=== PATIENT | female | born 1965 | race Asian ===

== ENCOUNTER → 2017-10-19 08:18 | Outpatient (CLI) | payer BC, SELFPAY ==
--- NOTE | 2017-10-19 08:22 | US_ITS ---
STUDY: ABDOMINAL ULTRASOUND - RIGHT UPPER QUADRANT REASON FOR VISIT: Female, 52 years old. Mobile abdominal mass. Bloating. TECHNIQUE: Ultrasound evaluation of the right upper quadrant was performed with real-time and static benz-scale imaging. TECHNICAL QUALITY: Adequate. COMPARISON: None. FINDINGS: Liver: The liver measures 13.0 cm. There is increased echogenicity consistent with fatty infiltration. The bile ducts are within normal limits. There is hepatic color flow. The direction of portal flow is hepatopetal. There is no demonstrated mass lesion. Gallbladder: Normal distended gallbladder. The gallbladder wall measures 2.4 mm. There is a negative sonographic Parsons's sign. There is no pericholecystic fluid. There are no gallstones. Common Bile Duct (C.B.D.): The common bile duct measures 2.4 mm. Pancreas: Normal size of the head, body and tail of the pancreas. There is normal echogenicity of the pancreas. There is no demonstrated pancreatic mass or cyst. Right Kidney: Normal size of the right kidney. The right kidney measures 9.8 cm x 4.7 cm x 4.7 cm. Normal renal cortex. The right cortex measures 1.4 cm. There is no demonstrated renal mass or cyst. There is no right hydronephrosis. US/Abdomen Limited IMPRESSION: Fatty infiltration of the liver. Electronically Signed: Jaylen León MD at 10:06 EST Tel [phone], Service support ,
--- NOTE | 2017-10-19 08:22 | US_ITS ---
STUDY: ULTRASOUND OF THE FEMALE PELVIS - COMPLETE REASON FOR EXAM: Female, 52 years old. History of a mobile mass in the abdomen. LMP: September 22, 2017. TECHNIQUE: Transvaginal TECHNICAL QUALITY: Adequate. COMPARISON: None. FINDINGS: The uterus is anteverted and is in a midline position. The uterus is enlarged and measures 18.8 cm x 11.8 cm x 7.3 cm. There are Nabothian cysts of the cervix. The endometrium measures 7.4 mm in thickness, and is hyperechoic. There is no demonstrated endometrial mass. There is evidence of a large 11.6 cm x 10 cm x 8 cm fundal fibroid. I.U.D. - The patient does not have an I.U.D. The right ovary is non-visualized. The left ovary is non-visualized. There is no fluid in the cul-de-sac. US/Pelvic (Non ) IMPRESSION: Enlarged fibroid uterus. 11.6 cm x 10 cm x 8 cm fibroid in the fundal portion of the uterus. Electronically Signed: Jaylen León MD at 10:05 EST Tel [phone], Service support ,
== END ==
PROVIDERS: Family Provider Family Medicine; PCP Family Medicine; Visit Provider Family Medicine
DX: N85.2 Hypertrophy of uterus (principal)
CPT/HCPCS: 76705; 76856

== ENCOUNTER → 2017-11-09 07:09 | Outpatient (CLI) | payer BC, SELFPAY ==
--- NOTE | 2017-11-08 15:45 | EMB_PTH ---
PATIENT: BO MCKEON LOC: #:[id number] AGE/SX: 60/F ROOM: RE11/09/[address]: Dr. Radha Garner MD : 1965 BED: DIS: SPEC #: [id number] RECD: 11/08/17 17:34 STATUS: ARNOLDO REKary #: [id number] MARLENA: 11/08/17 15:[address]: Radha Keating DEPT: SURGICAL PATHOLOGY RECD BY: Franki Stauffer ENTERED: 11/09/17 08:58 SP TYPE: ENDOM BX/C NALLELY DR: Dr. Sterling Melchor MD Tissues: Endometrium, NOS Procedures: Surgery Specimen Level IV HEADER OPERATION: Endometrial biopsy PRE-OP DIAGNOSIS: Abnormal uterine bleeding TISSUE SUBMITTED: Endometrial biopsy MICROSCOPIC DIAGNOSIS Endometrial biopsy: Scant superficial fragments of weakly proliferative endometrium and mucoid tissue. See comment. PADMINI:tony 11/12/17 COMMENT The specimen predominantly consists of mucoid tissue. Correlation with clinical findings and appropriate follow up are necessary. MICROSCOPIC DESCRIPTION Slides are reviewed. GROSS DESCRIPTION Received in fixative is one container labeled with the patient's name and designated EM biopsy. The specimen consists of multiple fragments of hemorrhagic soft tissue mixed with mucoid tissue that in aggregate measure 3 x 2.5 x 0.4 cm. The entire specimen is submitted in one cassette. / SJ:tony 11/09/17 TC:4 CPT: 19565
[2017-11-09 09:33] LABS: LDH 197 U/L (84-246)
== END ==
PROVIDERS: Family Provider Family Medicine; PCP Family Medicine; Visit Provider Obstetrics & Gynecology
DX: N93.9 Abnormal uterine and vaginal bleeding, unspecified (principal)
CPT/HCPCS: 36415; 83615; 88305

== ENCOUNTER → 2017-11-09 10:59 | Outpatient (CLI) | payer BC, SELFPAY | PROVIDERS: Family Provider Family Medicine; PCP Family Medicine; Visit Provider Obstetrics & Gynecology | DX: N93.9 Abnormal uterine and vaginal bleeding, unspecified (principal) ==

== ENCOUNTER 2017-11-13 13:03 | Emergency (ER) | payer BC, SELFPAY ==
[2017-11-13 13:04] VITALS: BP 176/115; PULSE 65; RESP 16; TEMP 36.2; O2SAT 100; BMI 41.8
--- NOTE | 2017-11-13 13:38 | EKG12_ITS ---
Test Reason : Blood Pressure : / mmHG Vent. Rate : 062 BPM Atrial Rate : 062 BPM P-R Int : 160 ms QRS Dur : 078 ms QT Int : 422 ms P-R-T Axes : 061 070 057 degrees QTc Int : 428 ms Normal sinus rhythm Normal ECG Confirmed by MEE KERN ([id number]), editor & co founder LUIS LAURA ([id number]) on 11/15/2017 2:58:45 PM Referred By: TIFFANIE Confirmed By:MEE KERN
--- NOTE | 2017-11-13 13:59 | NURSING ---
NO OLD EKGS
[2017-11-13 14:14] LABS: Absolute Lymphocyte Count 1.26 X10^3/ul (0.83-4.51); Absolute Neutrophil Count 3.9 X10^3/uL (2.0-7.7); Basophil# 0.01 X10^3/uL; Basophil% 0.2 % (0-1); Eosinophil# 0.02 X10^3/uL; Eosinophils% 0.4 % (0-5); Hematocrit 41.7 % (37-47); Hemoglobin 13.7 g/dl (12.0-15.0); Lymphocyte # 1.26 X10^3/ul (4.0); Lymphocyte % 22.7 % (19-41); Mean Corp Hgb Conc 32.9 g/gl (32-36); Mean Corpuscular Hgb 28.8 pg (27.0-32.0); Mean Corpuscular Volume 87.6 fL (81-99); Mean Platelet Vol. 10.1 fl (6.2-12.0); Monocyte# 0.33 X10^3/uL; Monocyte% 5.9 % (0-10); Neutrophil # 3.93 X10^3/uL (2.7-7.7); Neutrophil % 70.8 % (47-70); Platelet Count 202 K/mm3 (150-450); RBC Distribution Width CV 12.4 % (11.6-14.6); RBC Distribution Width SD 39.4 fl (35.1-43.9); Red Blood Count 4.76 M/mm3 (4.2-5.4); White Blood Count 5.6 K/mm3 (4.4-11.0)
[2017-11-13] MEDS: Ondansetron 4 MG/2 ML Vial IV (14:14)
[2017-11-13] MEDS: LORazepam 2 MG/ML Syringe IV (14:14)
[2017-11-13] MEDS: 0.9% Normal Saline 1,000 ML 999 ML IV (14:14)
[2017-11-13 14:17] LABS: POSITIVE COUNT NO; POSITIVE DIFFERENTIAL NO; POSITIVE MORPHOLOGY NO
[2017-11-13 14:19] LABS: Anion Gap 8 (5-15); BUN 15 mg/dL (7-18); BUN/Creat Ratio 27.6 RATIO (10-20); Calcium,Total 9.2 mg/dL (8.5-10.1); Chloride 104 mmol/L (98-107); Creatinine, Serum 0.54 mg/dL (0.55-1.02); EST Glomerular Filtration Rate 125 mL/min (>60); Est Glom Filt Rate - Afr Amer 151 mL/min (>60); Estimated Creatinine Clearance 87.54 ml/min; Glucose 98 mg/dL (74-106); Potassium 3.4 mmol/L (3.5-5.1); Sodium Level 137 mmol/L (136-145)
[2017-11-13 15:31] VITALS: BP 126/80; PULSE 73; RESP 16; O2SAT 98
--- NOTE | 2017-11-13 15:38 | ED.VISSUMM ---
- ER Visit Summary Date of Service: 11/13/17 Chief Complaint: Dizziness nausea and vomiting History of Present Illness: The patient is a 52 F with dizziness and vomiting. Her symptoms began at about 3 AM this morning. There is a family history of M?ni?re's disease. The patient states she has had prior episodes of vertigo and gets similar symptoms about once a year. She states this is the most severe episode that she has had. She feels like the room is spinning and it is worse particularly when she turns her head to the left. She has had several episodes of nonbloody nonbilious emesis. Her symptoms are worse with movement and attempts of ambulation as well. No chest pain shortness of breath speech difficulty paresthesias or weakness. Physical Examination: Afebrile initial blood pressure 176/115 Moist mucous membranes Heart regular rate and rhythm Lungs are clear Abdomen soft No focal or lateralizing neurological deficits, cranial nerves intact Lateral nystagmus Test Results: EKG shows normal sinus rhythm at a rate of 62. CBC BMP unremarkable. Emergency Department Course and Treatment: Valium is not available. Patient was given IV fluids and IV Ativan. She does report significant improvement on reevaluation. She states she is slightly dizzy but was able to ambulate without difficulty. She has no further vomiting. She was given a prescription for Antivert. She understands return for new or worsening symptoms. She will follow-up as an outpatient. Patient discharged. Treatment Plan: [] Disposition: Discharge Impression: Vertigo This note was generated with [employer] dictation software. It may contain incorrect words, spelling, and punctuation that were not noted in review of the chart prior to signing ED Disposition - Plan for ED Patient: Chief Complaint: Dizziness Referrals: Sterling Melchor MD [Primary Care Provider] -
--- NOTE | 2017-11-13 15:41 | ED.DCSUM_ITS ---
- ER Visit Summary Date of Service: 11/13/17 Chief Complaint: Dizziness nausea and vomiting History of Present Illness: The patient is a 52 F with dizziness and vomiting. Her symptoms began at about 3 AM this morning. There is a family history of M? ni?re's disease. The patient states she has had prior episodes of vertigo and gets similar symptoms about once a year. She states this is the most severe episode that she has had. She feels like the room is spinning and it is worse particularly when she turns her head to the left. She has had several episodes of nonbloody nonbilious emesis. Her symptoms are worse with movement and attempts of ambulation as well. No chest pain shortness of breath speech difficulty paresthesias or weakness. Physical Examination: Afebrile initial blood pressure 176/115 Moist mucous membranes Heart regular rate and rhythm Lungs are clear Abdomen soft No focal or lateralizing neurological deficits, cranial nerves intact Lateral nystagmus Test Results: EKG shows normal sinus rhythm at a rate of 62. CBC BMP unremarkable. Emergency Department Course and Treatment: Valium is not available. Patient was given IV fluids and IV Ativan. She does report significant improvement on reevaluation. She states she is slightly dizzy but was able to ambulate without difficulty. She has no further vomiting. She was given a prescription for Antivert. She understands return for new or worsening symptoms. She will follow-up as an outpatient. Patient discharged. Treatment Plan: [] Disposition: Discharge Impression: Vertigo This note was generated with [employer] dictation software. It may contain incorrect words, spelling, and punctuation that were not noted in review of the chart prior to signing ED Disposition - Plan for ED Patient: Chief Complaint: Dizziness Referrals: Sterling Melchor MD [Primary Care Provider] -
--- NOTE | 2017-11-13 15:41 | ED.DEP ---
ED Disposition - Plan for ED Patient: Chief Complaint: Dizziness Instructions: ED Vertigo Unspecified Prescriptions: Meclizine HCl [Antivert] 25 mg PO 4X/DAY PRN PRN #20 tab PRN Reason: Dizziness Referrals: Sterling Melchor MD [Primary Care Provider] -
[2017-11-13 15:48] VITALS: BP 135/79; PULSE 61; RESP 15; O2SAT 98
== END 2017-11-13 15:48 | disposition home or self-care (01) ==
PROVIDERS: Emergency Provider Emergency Medicine; Family Provider Family Medicine; PCP Family Medicine
DX: R42 Dizziness and giddiness (principal); R11.2 Nausea with vomiting, unspecified; I10 Essential (primary) hypertension; Z79.899 Other long term (current) drug therapy
CPT/HCPCS: 80048; 85025; 93005; 96361; 96374; 96375; 99283; J7030; A4216; J2405

== ENCOUNTER 2018-02-14 05:58 | Inpatient (IN) | payer BC, SELFPAY ==
--- NOTE | 2018-02-11 15:26 | EKG12_ITS ---
Test Reason : PREOP Blood Pressure : / mmHG Vent. Rate : 064 BPM Atrial Rate : 064 BPM P-R Int : 156 ms QRS Dur : 074 ms QT Int : 372 ms P-R-T Axes : 059 062 049 degrees QTc Int : 383 ms Normal sinus rhythm Possible Left atrial enlargement Borderline ECG Confirmed by GUERRERO NGO, PRASANTH ([id number]), book or script editor LUIS LAURA ([id number]) on 02/20/2018 3:21:53 PM Referred By: Radha Lilly Confirmed By:PRASANTH MASTERS MD
[2018-02-11 15:45] LABS: Hematocrit 40.8 % (37-47); Hemoglobin 13.3 g/dl (12.0-15.0); Mean Corp Hgb Conc 32.6 g/gl (32-36); Mean Corpuscular Hgb 28.8 pg (27.0-32.0); Mean Corpuscular Volume 88.3 fL (81-99); Mean Platelet Vol. 10.7 fl (6.2-12.0); Platelet Count 209 K/mm3 (150-450); RBC Distribution Width CV 12.5 % (11.6-14.6); RBC Distribution Width SD 39.6 fl (35.1-43.9); Red Blood Count 4.62 M/mm3 (4.2-5.4); White Blood Count 5.4 K/mm3 (4.4-11.0)
[2018-02-11 16:08] LABS: Scan Indicated on CBC? Y/N NO
[2018-02-11 16:20] LABS: Anion Gap 9 (5-15); BUN 17 mg/dL (7-18); Calcium,Total 8.8 mg/dL (8.5-10.1); Chloride 110 mmol/L (98-107); Creatinine, Serum 0.65 mg/dL (0.55-1.02); EST Glomerular Filtration Rate 101 mL/min (>60); Est Glom Filt Rate - Afr Amer 122 mL/min (>60); Glucose 127 mg/dL (74-106); Potassium 3.7 mmol/L (3.5-5.1); Sodium Level 141 mmol/L (136-145); Thyroid Stim Hormone (TSH) 0.22 uIU/mL (0.358-3.74)
[2018-02-11 16:44] LABS: Prothrombin Time (Protime)PT. 13.4 SECONDS (11.7-14.9)
[2018-02-11 16:45] LABS: Partial Thromboplast Time 30.9 Seconds (24.1-36.2)
[2018-02-13 14:40] LABS: Free T3 2.5 pg/mL (2.18-3.98); T4 Free Direct 1.13 ng/dL (0.76-1.46)
[2018-02-14] VITALS (11 sets, daily range): BP systolic 111–124; BP diastolic 64–82; PULSE 62–81; RESP 16–18; TEMP 36.4–37.2; O2SAT 94–99; BMI 29.1
[2018-02-14 06:26] LABS: Internal QC Validated? YES +Cl - CLEAR BKGD; Pregnancy, Urine Negative Negative
--- NOTE | 2018-02-14 07:30 | HYST_PTH ---
PATIENT: BO MCKEON LOC: MS3 U#:[id number] AGE/SX: 52/F ROOM: MS306 RE02/14/[address]: Dr. Radha Garner MD : 1965 BED: 1 DIS: 02/16/2018 SPEC #: [id number] RECD: 02/14/18 13:29 STATUS: ARNOLDO REKary #: [id number] MARLENA: 02/14/18 07:[address]: Radha Keating DEPT: SURGICAL PATHOLOGY RECD BY: Franki Stauffer ENTERED: 02/14/18 13:29 SP TYPE: HYSTERECT OTHR DR: Dr. Sterling Melchor MD Tissues: Uterus, NOS Procedures: Surgery Specimen Level V HEADER OPERATION: Total abdominal hysterectomy, bilateral salpingectomy PRE-OP DIAGNOSIS: Uterine fibroids TISSUE SUBMITTED: Uterus, cervix, bilateral tubes ? right tube marked with tie MICROSCOPIC DIAGNOSIS Uterus, cervix, bilateral tubes, total abdominal hysterectomy and bilateral salpingectomy: Cervix ? chronic cystic cervicitis and squamous metaplasia. Endometrium ? secretory endometrium. Myometrium ? a leiomyoma (12 cm in greatest dimension). - Focal adenomyosis. Bilateral fallopian tubes - no pathologic diagnosis. SJ:tony 02/15/18 MICROSCOPIC DESCRIPTION Slides are reviewed. GROSS DESCRIPTION Received in fixative is one container labeled with the patient's name and designated uterus, cervix, bilateral tubes, right tube marked with tie. The specimen consists of a hysterectomy specimen consisting of uterus with portion of upper cervix and detached portion of lower cervix and detached bilateral fallopian tubes. The uterus with upper portion of the cervix measures 21 x 11 x 11 cm and detached portion of cervix measures 4 x 3 x 3 cm. The serosal surface is campbell, glistening. The uterus with detached cervix weighs 979 gm. The ectocervical mucosa is focally congested. Sections of the cervix reveal a few cysts filled with mucoid material. The upper portion of the cervix with a piece of uterus measures 3 cm in length. The endometrial cavity is compressed to one side and measures 6 cm in length and 3.5 cm in width. The endometrium is campbell, glistening without any mass lesion and measures up to 0.3 cm in thickness. Sections of the uterine wall reveal a campbell, nodular mass occupying the anterior uterine wall and the fundus measuring 12 cm in greatest dimension. Sections of this mass reveal campbell whorled cut surfaces without areas of hemorrhage, necrosis or cystic degeneration. The uninvolved uterine wall measures 2.5 cm in thickness. The right fallopian tube with the tie measures 6 cm in length and 0.6 cm in diameter. The fimbrial end is identified. The left fallopian tube is similar appearance to right and measures 3.5 cm in length and 0.5 cm in diameter. Sections reveal unremarkable cut surfaces. Motorcycle Mechanic Apprentice sections are submitted in 11 cassettes as follows: 1 ? detached portion of cervix and upper portion of anterior cervix, 2 ? detached portion of cervix and upper portion of posterior cervix, 3 & 4 - anterior uterine wall, 5 & 6 - posterior uterine wall, 7-9 ? nodular mass, 10 ? right fallopian tube, 11 ? left fallopian tube. / PADMINI:tony 02/14/18 TC:1 CPT: 70900
--- NOTE | 2018-02-14 10:28 | PCM.IMDPSTOP ---
Problem List (1) Uterine fibroid Status: Acute (2) Excessive and frequent menstruation with regular cycle Status: Acute Immediate Post-Op Note Date of Procedure: 02/14/18 Primary Surgeon/Physician: Radha Lilly, dewaterer operator: Irlanda Galarza Pre-Operative Diagnosis: Symptomatic uterine fibroids Post-Operative Diagnosis: Symptomatic uterine fibroids Surgery/Procedure Performed:: Total abdominal hysterectomy, bilateral salpingectomy Description of Surgical Findings:: Uterus 990mg Estimated Blood Loss: 400 ml Specimen's removed: uterus, cervix, bilateral tubes Type of Anesthesia:: General - Admit VTE Documentation VTE Present on Admission: No VTE Mechan Device Prophylaxis: SCD's VTE Pharm Prophylaxis ordered?: No
--- NOTE | 2018-02-14 10:31 | OP.PN_ITS ---
Problem List (1) Uterine fibroid Status: Acute (2) Excessive and frequent menstruation with regular cycle Status: Acute Immediate Post-Op Note Date of Procedure: 02/14/18 Primary Surgeon/Physician: Radha Lilyl, recruiting administrator: Irlanda Galarza Pre-Operative Diagnosis: Symptomatic uterine fibroids Post-Operative Diagnosis: Symptomatic uterine fibroids Surgery/Procedure Performed:: Total abdominal hysterectomy, bilateral salpingectomy Description of Surgical Findings:: Uterus 990mg Estimated Blood Loss: 400 ml Specimen's removed: uterus, cervix, bilateral tubes Type of Anesthesia:: General - Admit VTE Documentation VTE Present on Admission: No VTE Mechan Device Prophylaxis: SCD's VTE Pharm Prophylaxis ordered?: No
--- NOTE | 2018-02-14 10:40 | PCM.OPRPT ---
Problem List (1) Uterine fibroid Status: Chronic Qualifiers: Uterine leiomyoma location: intramural and submucous Qualified Code(s): D25.1 - Intramural leiomyoma of uterus; D25.0 - Submucous leiomyoma of uterus (2) Excessive and frequent menstruation with regular cycle Status: Chronic Report of Operation Date of Procedure: 02/14/18 Pre-Operative Diagnosis: Symptomatic uterine fibroids Post-Operative Diagnosis: Symptomatic uterine fibroids Surgery/Procedure Performed:: Total abdominal hysterectomy, bilateral salpingectomy Description of Surgical Findings:: Uterus 990mg turning machine operator helper: Irlanda Galarza Type of Anesthesia:: General Anesthesiologist: Sterling Johnson Specimen's removed: uterus, cervix, bilateral tubes Drains: 150 ml urine Estimated Blood Loss (mL): 400 ml Fluids Replaced: 1500 ml Description of Procedure: Indications: Ms. hansen is a 52-year-old para 2 perimenopausal female with history of menorrhagia and uterine fibroids. Her uterus was approximately 18-20 weeks size on abdominal exam. She had endometrial biopsy demonstrating weakly proliferative endometrium and a normal LDH. Following counseling she opted to proceed with total abdominal hysterectomy and bilateral salpingectomy. Risks, benefits, indications and alternatives of procedure were reviewed. Procedure: Patient was taken to the operating room and sent and was performed. She is placed in a dorsal supine position and induced under general anesthesia and intubated. She was then had perineal prep and Agee catheter was placed. The abdomen was prepped and then draped in sterile fashion. Timeout was performed. A midline infraumbilical incision was made using a scalpel and brought down to incise the subcutaneous tissue and the rectus fascia at the midline using the Bovie. The rectus muscles Shruthi at the midline and . The peritoneum was entered sharply and the peritoneal incision was extended. The uterus was delivered via the incision and the bowel was packed in the Carrabelle retracting system was placed. Attention was turned to the right uterus. The round ligament was isolated incised and the anterior broad ligament was opened to create a bladder flap. The uterine vessels were skeletonized. An avascular segment of the posterior broad ligament was incised and defect created. This uterine ovarian ligament was subsequently clamped and cut. The adnexal pedicle was doubly suture ligated. Attention was turned to the left and pelvis was performed on this side. The uterine vessels and cardinal ligaments were serially Yulissa clamped, cut and suture ligated using 0 Vicryl suture. 0 Vicryl was used for all sutures intra-abdominally during this case unless otherwise mentioned. The uterosacral ligaments were bilaterally clamped, cut and transfixed. The uterus and cervix were excised. This specimen demonstrated only a small portion of the cervical portion was excised. This time it opted to proceed with trachelectomy. The remaining cervix was doubly bluntly dissected from the vagina then excised. The cervix had been removed in its entirety with retrieval of the specimen. The vaginal cuff was reapproximated using serial figure of 8 sutures. Then turned to the left adnexa. The mesosalpinx was clamped and salpingectomy performed. The pedicle was suture-ligated select hemostasis. In similar fashion right salpingectomy was also performed. Attention was then turned to the cuff again some bleeding anterior to the cuff was controlled using the coagulation and suture ligation. Guille was placed at the site with hemostasis attained. The retracting system was removed from the abdomen as were the packing laps. The peritoneum was reapproximated using 0 Vicryl running suture. The rectus fascia was reapproximated using 0 Vicryl mattress sutures. The cutaneous tissue was reapproximated using simple interrupted sutures 0 Vicryl. The skin was closed using 4-0 Monocryl. Mepilex occlusive dressing was placed over the incisional wound. The patient was awakened, extubated and transferred to the recovery room without complication. Sponge, instrument and needle counts were correct ?2. - Complications None - Admit VTE Documentation VTE Present on Admission: No VTE Mechan Device Prophylaxis: SCD's VTE Pharm Prophylaxis ordered?: No
[2018-02-14] MEDS: Dextrose 5%-Lactated Ringers 1,000 ML 125 ML IV ×2 (12:15→19:50)
[2018-02-14] MEDS: Ketorolac 30 MG/ML Syringe IV ×2 (13:07→18:21)
[2018-02-14] MEDS: Levothyroxine 75 MCG Tablet PO (14:32)
[2018-02-14] MEDS: Acetaminophen 500 MG Tablet 1000 MG PO ×2 (14:32→21:59)
[2018-02-14] MEDS: HYDROmorphone 1 MG/ML Syringe IV (14:58)
--- NOTE | 2018-02-14 16:34 | PCM.PN.OB ---
Subjective: Carine is sore, but denies severe pain. She is nauseated with clear liquids. Denies chest pain, shortness of breath or other concerns. Objective: AVSS - Physical Exam General: Alert, Oriented x3, Cooperative, No apparent distress HEENT: Atraumatic, Normocephalic Lungs: Clear to auscultation, Normal air movement Cardiovascular: Regular rate, Regular Rhythm, Normal S1, Normal S2 Abdomen: Soft, Non Tender, Non-Distended, - - Incisional dressing clean, dry and intact Extremities: No edema, No Calf Tenderness Neurological: Neuro grossly intact Psych/Mental Status: Normal Affect, Appropriate, Alert and oriented to time, place, person, mood and affect Vital Signs Temp Pulse Resp BP Pulse Ox 98.4 F 70 16 119/71 96 02/14/18 16:02 02/14/18 16:02 02/14/18 16:02 02/14/18 16:02 02/14/18 16:02 Oxygen Flow Rate (L/min) 2 Oxygen Delivery Method Room Air Weight: 67.7 kg Body Mass Index (BMI) 29.1 Intake and Output for Last 24 Hours 02/12/18 02/13/18 02/14/18 23:59 23:59 23:59 Intake Total 1500 / 1500 Output Total 100 / 100 Balance 1400 / 1400 Laboratory Tests Past 24 Hrs 02/14/18 06:15 Urine Test Negative Medical Necessity - Tobacco Use Smoking Status: Never smoker Assessment/Plan 52yo s/p REYNOLD, bilateral salpingectomy for symptomatic uterine fibroids doing well overall. -Zofran for nausea, will continue on CLD this evening and advance as tolerated. -Abdominal binder -OOB to chair this evening -Routine postop care -Lovenox for DVT ppx
[2018-02-14] MEDS: Ondansetron 4 MG/2 ML Vial IV (19:50)
[2018-02-14] MEDS: Enoxaparin 40 MG/0.4 ML Syringe SC (19:50)
[2018-02-14] MEDS: 0.9% NaCl Peripheral Flush Adult/Peds IV (19:51)
[2018-02-15] MEDS: Ketorolac 30 MG/ML Syringe IV ×3 (00:25→12:15)
[2018-02-15] MEDS: 0.9% NaCl Peripheral Flush Adult/Peds IV ×4 (00:27→12:18)
[2018-02-15 02:49] VITALS: BP 105/53; PULSE 72; RESP 16; TEMP 37.8; O2SAT 96
[2018-02-15] MEDS: Acetaminophen 500 MG Tablet 1000 MG PO ×3 (05:43→23:09)
[2018-02-15] MEDS: Levothyroxine 75 MCG Tablet PO (05:43)
[2018-02-15 06:06] LABS: Hematocrit 31.9 % (37-47); Hemoglobin 10.4 g/dl (12.0-15.0); Mean Corp Hgb Conc 32.6 g/gl (32-36); Mean Corpuscular Hgb 29.2 pg (27.0-32.0); Mean Corpuscular Volume 89.6 fL (81-99); Mean Platelet Vol. 10.5 fl (6.2-12.0); Platelet Count 165 K/mm3 (150-450); RBC Distribution Width CV 12.5 % (11.6-14.6); RBC Distribution Width SD 39.1 fl (35.1-43.9); Red Blood Count 3.56 M/mm3 (4.2-5.4); White Blood Count 10.6 K/mm3 (4.4-11.0)
[2018-02-15 06:11] LABS: Scan Indicated on CBC? Y/N NO
[2018-02-15 07:20] VITALS: O2SAT 94
--- NOTE | 2018-02-15 08:48 | PCM.PN.OB ---
- Physical Exam Vital Signs Temp Pulse Resp BP Pulse Ox 100.1 F H 72 16 105/53 L 94 02/15/18 02:49 02/15/18 02:49 02/15/18 02:49 02/15/18 02:49 02/15/18 07:20 Oxygen Flow Rate (L/min) 2 Oxygen Delivery Method Room Air Weight: 67.7 kg Body Mass Index (BMI) 29.1 Intake and Output for Last 24 Hours 02/13/18 02/14/18 02/15/18 23:59 23:59 23:59 Intake Total 2787 / 2787 898 / 898 Output Total 1100 / 1100 680 / 680 Balance 1687 / 1687 218 / 218 Laboratory Tests Past 24 Hrs 02/15/18 05:45 WBC 10.6 RBC 3.56 L Hgb 10.4 L Hct 31.9 L MCV 89.6 MCH 29.2 MCHC 32.6 RDW 12.5 RDW Differential 39.1 Plt Count 165 MPV 10.5 Medical Necessity - Tobacco Use Smoking Status: Never smoker
--- NOTE | 2018-02-15 08:52 | PCM.PN.OB ---
Subjective: No issues overnight. Nausea resolved. Tolerated clear liquid diet and cream of wheat this morning. Pain is controlled. Passing flatus from below. Was out of bed to chair overnight. Agee removed this morning. Objective: AVSS - Physical Exam General: Alert, Oriented x3, Cooperative, No apparent distress HEENT: Atraumatic, Normocephalic Lungs: Clear to auscultation, Normal air movement Cardiovascular: Regular rate, Regular Rhythm, Normal S1, Normal S2 Abdomen: Soft, Non Tender, Non-Distended, Passing Flatus, - - Incisional dressing c/d/i Extremities: No edema, No Calf Tenderness Neurological: Neuro grossly intact Psych/Mental Status: Normal Affect, Appropriate, Alert and oriented to time, place, person, mood and affect Vital Signs Temp Pulse Resp BP Pulse Ox 100.1 F H 72 16 105/53 L 94 02/15/18 02:49 02/15/18 02:49 02/15/18 02:49 02/15/18 02:49 02/15/18 07:20 Oxygen Flow Rate (L/min) 2 Oxygen Delivery Method Room Air Weight: 67.7 kg Body Mass Index (BMI) 29.1 Intake and Output for Last 24 Hours 02/13/18 02/14/18 02/15/18 23:59 23:59 23:59 Intake Total 2787 / 2787 898 / 898 Output Total 1100 / 1100 680 / 680 Balance 1687 / 1687 218 / 218 Laboratory Tests Past 24 Hrs 02/15/18 05:45 WBC 10.6 RBC 3.56 L Hgb 10.4 L Hct 31.9 L MCV 89.6 MCH 29.2 MCHC 32.6 RDW 12.5 RDW Differential 39.1 Plt Count 165 MPV 10.5 Medical Necessity - Tobacco Use Smoking Status: Never smoker Assessment/Plan 52yo POD#1 s/p REYNOLD, bilateral salpingectomy for symptomatic uterine fibroids doing well overall. -Routine postop care -Voiding trial today -Advance diet as tolerated -Ambulating encouraged, Lovenox for DVT ppx
[2018-02-15 09:00] VITALS: BP 95/55; PULSE 63; RESP 16; TEMP 37.3; O2SAT 98
--- NOTE | 2018-02-15 10:46 | CASEMGMT ---
See RN CM assessment link. DC Plan Home no needs identified @ this time. Pt states her daughter and son are able to assist and will be available on dc. Mariano TORRESN RN ACM
[2018-02-15 14:10] VITALS: BP 109/68; PULSE 64; RESP 16; TEMP 36.9; O2SAT 97
[2018-02-15] MEDS: Ketorolac 10 MG Tablet PO ×2 (17:34→23:10)
[2018-02-15 20:28] VITALS: BP 105/70; PULSE 68; RESP 16; TEMP 36.7; O2SAT 98
[2018-02-15] MEDS: Enoxaparin 40 MG/0.4 ML Syringe SC (23:10)
[2018-02-16 04:13] VITALS: BP 116/74; PULSE 58; RESP 14; TEMP 36.8; O2SAT 97
--- NOTE | 2018-02-16 04:33 | DCINST_ITS ---
Discharge Diet: No Restrictions Discharge Activity: Return to Normal Activity, May Not Drive - while taking narcotic pain medications., May Shower May resume sexual activity in: 6 weeks Lifting Restrictions: 10 lb Call your doctor if your incision/area has: Continuous Slow Oozing, Sudden Increased Bleeding, Increased Pain/ Swelling, Increased Redness, Foul Smelling Discharge Call your doctor if you observe: Fever of 101 or Higher, Inability to urinate, Inability to have a bowel movement, Using more than one pad per hour, Chest pain , Calf discomfort, Uncontrolled pain Suture Line Care: Avoid Pulling/Pushing Remove Dressing in (days):: 2 - Remove on Sunday Cleanse incision/area with: Soap & Water Additional Instructions: You may take up to Tylenol Extra Strength as needed over the counter Allergies/Adverse Reactions: Allergies No Known Allergies Allergy (Verified 02/07/18 11:11) Medications to take at Discharge Levothyroxine [Synthroid] 75 mcg PO DAILY 11/13/17 Meclizine HCl [Antivert] 25 mg PO 4X/DAY PRN PRN #20 tab 11/13/17 Acetaminophen [Tylenol] 1,000 mg PO Q8 tablet 02/16/18 Docusate Sodium [Colace] 100 mg PO BID PRN PRN #30 cap 02/16/18 Oxycodone [Oxyir] 5 mg PO Q4H PRN PRN 3 Days #18 tablet 02/16/18 The following prescriptions were given: Oxycodone [Oxyir] 5 mg PO Q4H PRN PRN 3 Days #18 tablet PRN Reason: Pain Docusate Sodium [Colace] 100 mg PO BID PRN PRN #30 cap PRN Reason: Constipation Primary Care Physician: Sterling Melchor MD [Primary Care Provider] - Please Follow Up With: Radha Lilly MD When: 1-2 weeks
[2018-02-16] MEDS: Ketorolac 10 MG Tablet PO (07:04)
[2018-02-16] MEDS: Acetaminophen 500 MG Tablet 1000 MG PO (07:04)
[2018-02-16] MEDS: Levothyroxine 75 MCG Tablet PO (07:04)
--- NOTE | 2018-02-16 09:40 | PN.OBGYN_ITS ---
Subjective: Pain is controlled with Toradol and Tylenol PO. Tolerates a regular diet. Passing flatus, no bowel movement yet. No issues overnight. Objective: AVSS - Physical Exam General: Alert, Oriented x3, Cooperative, No apparent distress HEENT: Atraumatic, Normocephalic Lungs: Clear to auscultation, Normal air movement Cardiovascular: Regular rate, Regular Rhythm, Normal S1, Normal S2 Abdomen: Bowel Sounds Present, Soft, Non Tender, Non-Distended, - - Incision c/d /i and nontender, dressing replaced Extremities: No edema, No Calf Tenderness Neurological: Neuro grossly intact Psych/Mental Status: Normal Affect, Appropriate, Alert and oriented to time, place, person, mood and affect Vital Signs Temp Pulse Resp BP Pulse Ox 98.2 F 58 L 14 116/74 97 02/16/18 04:13 02/16/18 04:13 02/16/18 04:13 02/16/18 04:13 02/16/18 04:13 Oxygen Flow Rate (L/min) 2 Oxygen Delivery Method Room Air Weight: 67.7 kg Body Mass Index (BMI) 29.1 Intake and Output for Last 24 Hours 02/14/18 02/15/18 02/16/18 23:59 23:59 23:59 Intake Total 2787 / 2787 1498 / 1498 900 / 900 Output Total 1100 / 1100 1180 / 1180 Balance 1687 / 1687 318 / 318 900 / 900 Medical Necessity - Tobacco Use Smoking Status: Never smoker Assessment/Plan 52yo POD#2 s/p REYNOLD, bilateral salpingectomy for symptomatic uterine fibroids doing well overall. -Routine postop care -D/C home today -Reviewed lifting restrictions
--- NOTE | 2018-02-16 09:42 | DCINST_ITS ---
Discharge Diet: No Restrictions Discharge Activity: Return to Normal Activity, May Not Drive - while taking narcotic pain medications., May Shower Return to work on:: 04/01/18 May resume sexual activity in: 6 weeks Lifting Restrictions: 10 lb Call your doctor if your incision/area has: Continuous Slow Oozing, Sudden Increased Bleeding, Increased Pain/ Swelling, Increased Redness, Foul Smelling Discharge Call your doctor if you observe: Fever of 101 or Higher, Inability to urinate, Inability to have a bowel movement, Using more than one pad per hour, Chest pain , Calf discomfort, Uncontrolled pain Suture Line Care: Avoid Pulling/Pushing Remove Dressing in (days):: 2 - Remove on Sunday Cleanse incision/area with: Soap & Water Additional Instructions: You may take up to Tylenol Extra Strength as needed over the counter Allergies/Adverse Reactions: Allergies No Known Allergies Allergy (Verified 02/07/18 11:11) Medications to take at Discharge Levothyroxine [Synthroid] 75 mcg PO DAILY 11/13/17 Meclizine HCl [Antivert] 25 mg PO 4X/DAY PRN PRN #20 tab 11/13/17 Acetaminophen [Tylenol] 1,000 mg PO Q8 tablet 02/16/18 Docusate Sodium [Colace] 100 mg PO BID PRN PRN #30 cap 02/16/18 Ibuprofen 800 mg PO TID PRN #30 tab 02/16/18 Oxycodone [Oxyir] 5 mg PO Q4H PRN PRN 3 Days #18 tablet 02/16/18 The following prescriptions were given: Oxycodone [Oxyir] 5 mg PO Q4H PRN PRN 3 Days #18 tablet PRN Reason: Pain Docusate Sodium [Colace] 100 mg PO BID PRN PRN #30 cap PRN Reason: Constipation Ibuprofen 800 mg PO TID PRN #30 tab PRN Reason: Pain Primary Care Physician: Sterling Melchor MD [Primary Care Provider] - Please Follow Up With: Radha Lilly MD When: 1-2 weeks
--- NOTE | 2018-02-16 09:42 | PCM.DC.SUM ---
Discharge Date and Diagnosis Date of Admission: 02/14/18 Date of Discharge: 02/16/18 - Secondary Discharge Diagnosis Chronic Problems Uterine fibroid (Chronic) Excessive and frequent menstruation with regular cycle (Chronic) Hospital Course and Treatment Operations: - - Total abdominal hysterectomy, bilateral salpingectomy Procedures: None Summary of Care Provided: The patient is a 52 year old female with symptomatic uterine fibroids admitted for scheduled hysterectomy. She underwent a total abdominal hysterectomy with bilateral salpingectomy for an approximately 20 week size uterus. Her post-operative course was uncomplicated. She tolerated a regular diet, passed flatus and had well controlled pain. She was discharged to home on post-operative day #1. Discharge Diet: No Restrictions Discharge Activity: Return to Normal Activity, May Not Drive - while taking narcotic pain medications., May Shower Return to work on:: 04/01/18 May resume sexual activity in: 6 weeks Call your doctor if your incision/area has: Continuous Slow Oozing, Sudden Increased Bleeding, Increased Pain/ Swelling, Increased Redness, Foul Smelling Discharge Call your doctor if you observe: Fever of 101 or Higher, Inability to urinate, Inability to have a bowel movement, Using more than one pad per hour, Chest pain, Calf discomfort, Uncontrolled pain Suture Line Care: Avoid Pulling/Pushing Remove Dressing in (days):: 2 - Remove on Sunday Cleanse incision/area with: Soap & Water Home Medications: Medications to take at Discharge Levothyroxine [Synthroid] 75 mcg PO DAILY 11/13/17 Meclizine HCl [Antivert] 25 mg PO 4X/DAY PRN PRN #20 tab 11/13/17 Acetaminophen [Tylenol] 1,000 mg PO Q8 tablet 02/16/18 Docusate Sodium [Colace] 100 mg PO BID PRN PRN #30 cap 02/16/18 Ibuprofen 800 mg PO TID PRN #30 tab 02/16/18 Oxycodone [Oxyir] 5 mg PO Q4H PRN PRN 3 Days #18 tablet 02/16/18 Following Prescrptions Were Given to Patient: Oxycodone [Oxyir] 5 mg PO Q4H PRN PRN 3 Days #18 tablet PRN Reason: Pain Docusate Sodium [Colace] 100 mg PO BID PRN PRN #30 cap PRN Reason: Constipation Ibuprofen 800 mg PO TID PRN #30 tab PRN Reason: Pain Primary Care Physician: Sterling Melchor MD [Primary Care Provider] - Please Follow Up With: Radha Lilly MD When: 1-2 weeks Additional Instructions: You may take up to Tylenol Extra Strength as needed over the counter Medical Necessity - Tobacco Use Smoking Status: Never smoker Tobacco Use: Non-smoker Meaningful Use Info Meaningful Use Diagnoses (Choose all that apply): None applicable
--- NOTE | 2018-02-16 09:46 | DS.PCM_ITS ---
Discharge Date and Diagnosis Date of Admission: 02/14/18 Date of Discharge: 02/16/18 - Secondary Discharge Diagnosis Chronic Problems Uterine fibroid (Chronic) Excessive and frequent menstruation with regular cycle (Chronic) Hospital Course and Treatment Operations: - - Total abdominal hysterectomy, bilateral salpingectomy Procedures: None Summary of Care Provided: The patient is a 52 year old female with symptomatic uterine fibroids admitted for scheduled hysterectomy. She underwent a total abdominal hysterectomy with bilateral salpingectomy for an approximately 20 week size uterus. Her post- operative course was uncomplicated. She tolerated a regular diet, passed flatus and had well controlled pain. She was discharged to home on post- operative day #1. Discharge Diet: No Restrictions Discharge Activity: Return to Normal Activity, May Not Drive - while taking narcotic pain medications., May Shower Return to work on:: 04/01/18 May resume sexual activity in: 6 weeks Call your doctor if your incision/area has: Continuous Slow Oozing, Sudden Increased Bleeding, Increased Pain/ Swelling, Increased Redness, Foul Smelling Discharge Call your doctor if you observe: Fever of 101 or Higher, Inability to urinate, Inability to have a bowel movement, Using more than one pad per hour, Chest pain , Calf discomfort, Uncontrolled pain Suture Line Care: Avoid Pulling/Pushing Remove Dressing in (days):: 2 - Remove on Sunday Cleanse incision/area with: Soap & Water Home Medications: Medications to take at Discharge Levothyroxine [Synthroid] 75 mcg PO DAILY 11/13/17 Meclizine HCl [Antivert] 25 mg PO 4X/DAY PRN PRN #20 tab 11/13/17 Acetaminophen [Tylenol] 1,000 mg PO Q8 tablet 02/16/18 Docusate Sodium [Colace] 100 mg PO BID PRN PRN #30 cap 02/16/18 Ibuprofen 800 mg PO TID PRN #30 tab 02/16/18 Oxycodone [Oxyir] 5 mg PO Q4H PRN PRN 3 Days #18 tablet 02/16/18 Following Prescrptions Were Given to Patient: Oxycodone [Oxyir] 5 mg PO Q4H PRN PRN 3 Days #18 tablet PRN Reason: Pain Docusate Sodium [Colace] 100 mg PO BID PRN PRN #30 cap PRN Reason: Constipation Ibuprofen 800 mg PO TID PRN #30 tab PRN Reason: Pain Primary Care Physician: Sterling Melchor MD [Primary Care Provider] - Please Follow Up With: Radha Lilly MD When: 1-2 weeks Additional Instructions: You may take up to Tylenol Extra Strength as needed over the counter Medical Necessity - Tobacco Use Smoking Status: Never smoker Tobacco Use: Non-smoker Meaningful Use Info Meaningful Use Diagnoses (Choose all that apply): None applicable
[2018-02-16 10:18] VITALS: BP 117/71; PULSE 59; RESP 16; TEMP 37.1; O2SAT 97
== END 2018-02-16 11:15 | disposition home or self-care (01) | DRG 742 ==
LOC: ACINP 10:54 → MS2 10:57 → MS3 02-15 13:59
PROVIDERS: Admitting Provider Obstetrics & Gynecology; Family Provider Family Medicine; PCP Family Medicine; Visit Provider Obstetrics & Gynecology
PROC: 0UT90ZZ Resection of Uterus, Open Approach (ICD-10-PCS; principal; 2018-02-14 07:10)
DX: D25.1 Intramural leiomyoma of uterus (principal); B18.1 Chronic viral hepatitis B without delta-agent; D25.0 Submucous leiomyoma of uterus; N92.0 Excessive and frequent menstruation with regular cycle; E06.9 Thyroiditis, unspecified; Z79.899 Other long term (current) drug therapy
CPT/HCPCS: 36415; 80048; 81025; 84439; 84443; 84481; 85027; 85610; 85730; 86850; 86900; 88307; 93005; J7120; A4216; J2405

== ENCOUNTER → 2018-03-09 07:56 | Outpatient (CLI) | payer BC, SELFPAY ==
--- NOTE | 2018-03-09 08:11 | BI_ITS ---
MAMMOGRAPHY - BILATERAL SCREENING REASON FOR EXAM: Female, 53 years old. Routine annual screening examination. PERTINENT HISTORY: Non-contributory. TECHNIQUE: Digital bilateral breast saji (3D mammographic acquisition) in the CC and MLO projections. 2-D mediolateral oblique (MLO) and craniocaudad (CC) views of both breasts were obtained. CAD: Full Field Digital Mammography with Computer Added Detection was performed. COMPARISON: Comparison is made with prior study dated February 27, 2017 and February 16, 2016. FINDINGS: Breast Composition: There are scattered areas of fibroglandular density. There are no dominant masses or suspicious calcifications. No other significant abnormalities are identified. There has been no significant change since the prior study. BI/SCREENING MAMM (CAD), BILAT IMPRESSION: Stable bilateral screening mammogram. Yearly follow-up mammogram recommended. (A) ASSESSMENT CATEGORY: BIRADS Category 1: Negative. A letter regarding these results will be sent to the patient by the facility within 30 days. Approximately 10% of breast cancers are not detected by mammography. A normal mammogram should not delay biopsy of a clinically suspicious abnormality. [id number] Electronically Signed: Jaylen León MD at 8:41 EDT Tel [phone], Service support ,
== END ==
PROVIDERS: Family Provider Family Medicine; PCP Family Medicine; Visit Provider Nurse Practitioner Adult Health
DX: Z12.31 Encounter for screening mammogram for malignant neoplasm of breast (principal)
CPT/HCPCS: 77063; 77067

== ENCOUNTER 2018-05-03 16:00 | Outpatient (RCR) | payer BC, SELFPAY ==
--- NOTE | 2018-04-02 11:03 | HP.PTEVAL ---
Patient's Visit Information BO MCKEON is a 53 year old F referred to Physical Therapy by Radha Lilly, with a diagnosis of BACK PAIN. Date of Evaluation: 04/02/18 Physical Therapist: Surekha Barnes - Visit Plan Frequency: 2-3x /Week Duration: 4-6 Weeks Plan: POSTURE CORRECTION/STRENGTHENING, INSTRUCTION IN APPROPRIATE BODY MECHANICS AND ACTIVITY MODIFICATIONS. DLS STARTING WITH A NEUTRAL SPINE PROGRESSING ROM TOLERATED. MICHELE LE ROM, STRETCHING AND STRENGTHENING. HEP INSTRUCTION. 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 HAS BEEN OFF WORK DUE TO HYSTERECTOMY WITH RTW PLANNED 04/11/18. Disability: NO. Present symptoms: MICHELE LOW BACK. PATIENT DENIES MICHELE LE PAIN, NUMBNESS OR TINGLING. Present since: TOTAL HYSTERECTOMY FEB 11 2018 AND THEN THE BACK PAIN STARTED SHORTLY AFTER THAT. Pain Scale: WORST 5/10, LEAST 2/10. Currently: 2/10. Commenced as a result of: PATIENT REPORTS THE DOCTOR TOLD HER SHE MIGHT BE COMPENSATING FOR THE REMOVAL OF THE LARGE FIBROIDS/HYSTERECTOMY. Symptoms at onset: SAME BUT NOT INTENSE. Worse: BENDING, AFTER WALKING, WEEDING, WASHING FACE, DOING DISHES. Better: LYING DOWN FOR SHORT TIMES. Disturbed sleep: NO. Previous history/Previous treatment: UNREMARKABLE. Coughing/sneezing/straining: NEGATIVE. Gait: NORMAL. Difficulty initiating urinatin: NO. Accidents: NO. Unexplained weight loss: NO. Imaging: NO. PMH: UNREMARKABLE EXCEPT DEPRESSION AND THYROID DZ. Recent major surgery: HYSTERECTOMY JANUARY 2018. 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 WAS COMING 6 DAYS A WEEK BEFORE SURGERY USING THE WEIGHT MACHINES, ELIPTICAL AND TREADMILL. - Objective Sitting/Standing Posture: POOR. Lordosis: NORMAL. Lateral shift: NO. Relevant shift: N/A. Active Correction of posture: WORSE. Other Observations: INDEP GAIT INTO PT WITHOUT AD. UNCOMFORTABLE WITH FREQUENT WEIGHT SHIFTING DURING SUBJECTIVE PORTION OF EVAL. INDEP TRANSFER EASILY FROM SIT TO STAND WITHOUT UE ASSIST. Motor deficit: MICHELE LE'S 5/5 WITH MMT'ING. Sensory deficit: NO. ROM deficit: MICHELE LE'S WFL. Reflexes: 2/2 MICHELE ACHILLES AND 1/2 MICHELE QUADS. Dural Signs: NEGATIVE MICHELE LE'S. Lumbar mvmt loss: flex - NIL. ext - MOD. R SG - MOD. L SG - MOD. PATIENT DENIED INCREASED PAIN WITH ONE FLEX REP BUT INCREASED PAIN WITH ONE EXT REP. NO INCREASED PAIN WITH MICHELE SG TESTING. Core strength: POOR. Palpation: TENDER WITH PALPATION THROUGHOUT THE LOWER THORACIC SPINE, LUMBAR SPINE, SACRUM, SI JOINTS, BUTTOCKS AND GREATER TROCH REGIONS. - Goals Goal 1:: DECREASE C/O BACK/HIP PAIN Goal Time Frame: 4-6 Weeks Goal 2:: IMPROVE BENDING, RECOVERY FROM WALKING, LIFTING, ADL, TRAVEL AND EMPLOYMENT/HOMEMAKING FUNCTION. Goal Time Frame: 4-6 Weeks Goal 3:: INSTRUCT IN PROPHYLAXIS Goal Time Frame: 4-6 Weeks - Rehabilitation Potential Rehabilitation Potential: Good - Anticipated Interventions Patient/Client Instruction: Educate patient on: Condition, Plan of Care, Risk Factors, Benefits of Fitness Program For the Purpose of:: To improve self management Therapeutic Exercise to Include: Strength training, Body mechanics, Postural training, Dynamic Lumbar Stabilization For the Purpose of:: To decrease pain, To improve muscle performance and motor function, To increase tolerance to activity/condition/position, To improve performance and independence with ADL's, To improve ability of physical actions for home/community/work/leisure, To improve self management Manual Therapy Techniques to Include: Soft tissue mobilization For the Purpose of:: To decrease pain, To decrease swelling/inflammation Thank you for the opportunity to evaluate your patient. For Medicare and Medicare HMO plans, please review the plan of care and approve it. It will need to be FAXED BACK to us at [phone] for Medicare purposes. Please let me know if there are questions or concerns regarding this plan of care. Physician Signature: Date:
--- NOTE | 2018-05-03 16:41 | HP.PTDCSUM_ITS ---
HP - PT D/C Summary It has been my pleasure to treat BO MCKEON under orders from Radha Garner,, for the diagnosis of BACK PAIN for a total of 10 visit(s). Discharge Date: 05/03/18 Please see the following information for a summary of their discharge status. - Subjective Subjective: PATIENT REPORTS SHE IS BETTER AND THERAPY HAS BEEN REALLY HELPFUL. REPORTS SHE CAN EMPTY THE HUMIDIFIER NOW WITHOUT ANY PAIN OR PROBLEM. SHE REPORTS THAT THE ONLY THING THAT MAKES IT NOT 100% IS SOME INTERMITTENT TIGHTNESS IN HER LOW BACK BUT STATES IT DOESN'T BOTHER ME AND I THINK THE EX'S WILL FIX IT. REPORTS SHE CAME IN AND EXERCISED ON THE MACHINES ON HER OWN ALREADY WITHOUT DIFFICULTY. NOT SURE IF NEEDLE HELPED OR NOT. - Pain LOW BACK Pain Intensity (Out of 10): 0 - Overall Improvement % Improvement: 90 - Objective Objective/Function: GOOD UNDERSTANDING OF ALL HOME INSTRUCTIONS DEMONSTRATED OR COMMUNICATED. ALL GOALS MET. - Goals Goal 1:: DECREASE C/O BACK/HIP PAIN Goal Progress: Goal Met Goal 2:: IMPROVE BENDING, RECOVERY FROM WALKING, LIFTING, ADL, TRAVEL AND EMPLOYMENT/HOMEMAKING FUNCTION. Goal Progress: Goal Met Goal 3:: INSTRUCT IN PROPHYLAXIS Goal Progress: Goal Met - Plan Plan: D/C TO INDEP EX. PATIENT IS AGREEABLE. - D/C Information If there are questions or concerns regarding this patient's physical therapy, please feel free to call me at [phone]. Thank you for the referral of this patient. Sincerely, Surekha Barnes
== END 2018-05-03 19:00 | disposition home or self-care (01) ==
LOC: PT 16:00
PROVIDERS: Family Provider Family Medicine; PCP Family Medicine; Visit Provider Obstetrics & Gynecology
DX: M54.5 Low back pain (principal)
CPT/HCPCS: 97014; 97110; 97140; 97162; 97530; G0283

== ENCOUNTER 2018-06-16 02:11 | Emergency (ER) | payer BC, SELFPAY ==
[2018-06-16 02:14] VITALS: BP 139/85; PULSE 59; RESP 16; TEMP 36.4; O2SAT 100; BMI 27.7
--- NOTE | 2018-06-16 02:39 | CT_ITS ---
STUDY: CT BRAIN WITHOUT CONTRAST REASON FOR EXAM: Female, 53 years old. Dizziness and nausea RADIATION DOSAGE (If Supplied By Facility): CTDIvol = ( 44.99 ) mGy, DLP = ( 762.36 ) mGycm TECHNIQUE: Transaxial CT imaging of the brain was performed without administration of intravenous contrast material. Individualized dose optimization techniques were used for this CT. COMPARISON: None. FINDINGS: Normal soft tissue structures. Normal calvarium. Normal size ventricles and extra-axial spaces for the patient's age. Normal white matter tracts of the cerebral hemispheres. Normal basal ganglia and thalami. Normal brainstem. Normal cerebellum. There is no intracranial hemorrhage. There are no findings of an acute ischemic infarction. Normal visualized paranasal sinuses. CT/Brain/Head without Contrast IMPRESSION: No CT evidence of infarct or hemorrhage. Comment: If there is clinical concern for hyperacute ischemia that is not yet apparent by CT, MRI should be considered if possible. Electronically Signed: Vega Mckeon MD at 3:42 EDT Tel , Service support ,
--- NOTE | 2018-06-16 02:39 | EKG12_ITS ---
Test Reason : DIZZINESS Blood Pressure : / mmHG Vent. Rate : 054 BPM Atrial Rate : 054 BPM P-R Int : 174 ms QRS Dur : 084 ms QT Int : 440 ms P-R-T Axes : 052 063 054 degrees QTc Int : 417 ms Sinus bradycardia Otherwise normal ECG Confirmed by [employer], NIKKI ([id number]), newspaper or periodical editor LUIS LAURA ([id number]) on 06/19/2018 8:57:57 AM Referred By: NAHUN Confirmed By:NIKKI JARAMILLO MD
--- NOTE | 2018-06-16 02:42 | ED.VISSUMM ---
- ER Visit Summary Date of Service: 06/16/18 Chief Complaint: Dizziness History of Present Illness: The patient is a 53 F who presents for dizziness. Onset was approximately 4 hours prior to presentation and occurred while patient was sleeping. She feels like everything is spinning, and it is worsened by movement. It is worse when she is on her left side or laying flat. Patient had difficulty walking secondary to symptoms. She had a prior similar episode in October, at which time she took one weeks worth of a medication, although she does not know the name of the medicine, and symptoms resolved. She has associated nausea and vomiting. She has a left-sided headache. It feels like pressure in her head. Denies unilateral numbness or weakness. No difficulty swallowing or speaking. No vision changes, although it is more comfortable to keep her eyes closed. Patient has a history of hypothyroidism status post thyroid ablation. She denies any further history. Physical Examination: Vital signs: afebrile, hemodynamically stable, no hypoxia on room air General: well nourished, well developed, in no distress, laying in bed with eyes closed, appears mildly uncomfortable Skin: warm, dry, no rash, no pallor HEENT: normocephalic and atraumatic, nontender scalp; PERRL, EOMI, subtle horizontal nystagmus, symptoms instigated with gaze to the left, moist mucous membranes Cardiovascular: regular rate and rhythm without murmurs, no peripheral edema, 2+ pulses all distal extremities Respiratory: No increased work of breathing, lungs are clear to auscultation bilaterally, no rales, rhonchi or wheezing Abdominal: Abdomen is soft, nontender with normoactive bowel sounds, no guarding or rebound, no masses MSK: Moves all extremities, no deformities, normal strength Neuro: Awake and alert, oriented ?4. No facial droop, sensation and motor function intact and symmetric, normal finger to nose and heel to brown testing Test Results: Abnormal Lab Results 06/16/18 06/16/18 06/16/18 02:28 02:28 02:28 WBC 5.3 RBC 4.78 Hgb 13.7 Hct 41.4 MCV 86.6 MCH 28.7 MCHC 33.1 RDW 12.3 RDW Differential 38.8 Plt Count 245 MPV 10.2 Immature Gran % (Auto) 0.000 Neut % (Auto) 31.1 L Lymph % (Auto) 59.7 H [place] % (Auto) 8.0 Eos % (Auto) 0.8 Baso % (Auto) 0.4 Absolute Neuts (auto) 1.7 L Absolute Lymphs (auto) 3.15 Total Counted Not Reportable PT 13.1 INR 1.0 APTT 26.8 Sodium 143 Potassium 3.5 Chloride 109 H Carbon Dioxide 22.0 Anion Gap 12 BUN 20 H Creatinine 0.73 Estim Creat Clear Calc 70.49 Est GFR (MDRD) Af Amer 107 Est GFR (MDRD) Non-Af 88 BUN/Creatinine Ratio 27.3 H Glucose 115 H Calcium 8.8 Total Bilirubin 0.40 AST 15 ALT 26 Alkaline Phosphatase 74 Troponin I < 0.015 Total Protein 7.8 Albumin 3.8 Globulin 4.0 Albumin/Globulin Ratio 1.0 Urine Color Urine Clarity Urine pH Ur Specific [place] Urine Protein Urine Glucose (UA) Urine Ketones Urine Occult Blood Urine Nitrite Urine Bilirubin Urine Urobilinogen Ur Leukocyte Esterase Urine RBC Urine WBC Ur Squamous Epith Cells Urine Bacteria Urine Mucus Ethyl Alcohol POC Glucose 06/16/18 06/16/18 06/16/18 02:28 03:04 03:40 WBC RBC Hgb Hct MCV MCH MCHC RDW RDW Differential Plt Count MPV Immature Gran % (Auto) Neut % (Auto) Lymph % (Auto) [place] % (Auto) Eos % (Auto) Baso % (Auto) Absolute Neuts (auto) Absolute Lymphs (auto) Total Counted PT INR APTT Sodium Potassium Chloride Carbon Dioxide Anion Gap BUN Creatinine Estim Creat Clear Calc Est GFR (MDRD) Af Amer Est GFR (MDRD) Non-Af BUN/Creatinine Ratio Glucose Calcium Total Bilirubin AST ALT Alkaline Phosphatase Troponin I Total Protein Albumin Globulin Albumin/Globulin Ratio Urine Color Yellow Urine Clarity Sl. Cloudy Urine pH 6.5 Ur Specific [place] 1.015 Urine Protein 15 H Urine Glucose (UA) Normal Urine Ketones Negative Urine Occult Blood Negative Urine Nitrite Negative Urine Bilirubin Negative Urine Urobilinogen Normal Ur Leukocyte Esterase Negative Urine RBC 0 SEEN Urine WBC 0 SEEN Ur Squamous Epith Cells 0-5 SEEN Urine Bacteria RARE Urine Mucus 0 SEEN Ethyl Alcohol < 3.0 POC Glucose 107 Clinical Impression(s) from Imaging Studies Brain CT 06/16/18 02:39 IMPRESSION: No CT evidence of infarct or hemorrhage. Comment: If there is clinical concern for hyperacute ischemia that is not yet apparent by CT, MRI should be considered if possible. Electronically Signed: Vega Mckeon MD at 3:42 EDT Tel , Service support , Chest X-Ray 06/16/18 03:20 IMPRESSION: Normal x-ray examination of the chest. Electronically Signed: Vega Mckeon MD at 3:58 EDT Tel , Service support , Medications Given Discontinued Medications Sodium Chloride () 1,000 mls @ 1,000 mls/hr IV .Q1H ONE Stop: 06/16/18 03:38 Last Admin: 06/16/18 02:58 Dose: 1,000 mls/hr Meclizine HCl (Antivert) 25 mg PO X1 ONE Stop: 06/16/18 05:07 Last Admin: 06/16/18 05:23 Dose: 25 mg Promethazine HCl (Phenergan) 12.5 mg IV X1 ONE Stop: 06/16/18 02:40 Last Admin: 06/16/18 02:58 Dose: 12.5 mg Emergency Department Course and Treatment: Patient was given IV fluids and Phenergan for symptomatic relief. Because she has had a prior episode of vertigo and states this feels similar, including worse symptoms with laying flat or turning to the left, this is most likely a peripheral vertigo. However her testing does not show reproducibility or quick fatigue of symptoms with repositioning, including laying her flat with her head turned to the left. Thus workup was performed to evaluate for alternative causes. Patient had no significant lab abnormalities, including a negative alcohol, negative troponin, no leukocytosis or significant anemia. Head CT showed no acute intracranial process, although this is not sensitive for cerebellar ischemia. Patient received IV fluids and Phenergan for her symptoms. On reevaluation her nausea had resolved but she continued to feel dizzy. She was given a dose of meclizine, and had great improvement in her dizziness. We discussed admission for further workup of her vertigo to rule out a central cause, although again this does seem most likely peripheral, as this is her second episode of the same symptoms and there is a component of additional triggers. Patient did not wish admission at this time and preferred to go home. She has had significant improvement in her symptoms and was able to ambulate without any difficulty, demonstrating no ataxic gait. Patient was given a prescription for meclizine and for Valium. She was discharged home with return precautions. Treatment Plan: [] Disposition: [] Impression: Peripheral vertigo This note was generated with Re[employer]ora dictation software. It may contain incorrect words, spelling, and punctuation that were not noted in review of the chart prior to signing ED Disposition - Plan for ED Patient: Disposition: Home or Assisted Living Chief Complaint: Dizziness Instructions: ED Vertigo Unspecified Prescriptions: Diazepam [Valium] 2 mg PO TID PRN PRN 5 Days #10 tab PRN Reason: Vertigo Meclizine HCl 25 mg PO TID PRN #30 tab PRN Reason: Vertigo Referrals: Sterling Melchor MD [Primary Care Provider] - 1-2 Days if not improving Additional Instructions: Please continue to use the meclizine for your dizziness. You may try the Valium if meclizine is not helping enough to control your symptoms. Be very careful when taking the Valium, as it may make you feel loopy or sleepy. If your symptoms worsen or you develop any new concerning symptoms, please return immediately to the emergency department for another evaluation. Please follow-up with your family doctor for another evaluation 1-2 days.
--- NOTE | 2018-06-16 02:45 | ED.DCSUM_ITS ---
- ER Visit Summary Date of Service: 06/16/18 Chief Complaint: Dizziness History of Present Illness: The patient is a 53 F who presents for dizziness. Onset was approximately 4 hours prior to presentation and occurred while patient was sleeping. She feels like everything is spinning, and it is worsened by movement. It is worse when she is on her left side or laying flat. Patient had difficulty walking secondary to symptoms. She had a prior similar episode in October, at which time she took one weeks worth of a medication, although she does not know the name of the medicine, and symptoms resolved. She has associated nausea and vomiting. She has a left-sided headache. It feels like pressure in her head. Denies unilateral numbness or weakness. No difficulty swallowing or speaking. No vision changes, although it is more comfortable to keep her eyes closed. Patient has a history of hypothyroidism status post thyroid ablation. She denies any further history. Physical Examination: Vital signs: afebrile, hemodynamically stable, no hypoxia on room air General: well nourished, well developed, in no distress, laying in bed with eyes closed, appears mildly uncomfortable Skin: warm, dry, no rash, no pallor HEENT: normocephalic and atraumatic, nontender scalp; PERRL, EOMI, subtle horizontal nystagmus, symptoms instigated with gaze to the left, moist mucous membranes Cardiovascular: regular rate and rhythm without murmurs, no peripheral edema, 2 + pulses all distal extremities Respiratory: No increased work of breathing, lungs are clear to auscultation bilaterally, no rales, rhonchi or wheezing Abdominal: Abdomen is soft, nontender with normoactive bowel sounds, no guarding or rebound, no masses MSK: Moves all extremities, no deformities, normal strength Neuro: Awake and alert, oriented ?4. No facial droop, sensation and motor function intact and symmetric, normal finger to nose and heel to brown testing Test Results: Abnormal Lab Results 06/16/18 06/16/18 06/16/18 02:28 02:28 02:28 WBC 5.3 RBC 4.78 Hgb 13.7 Hct 41.4 MCV 86.6 MCH 28.7 MCHC 33.1 RDW 12.3 RDW Differential 38.8 Plt Count 245 MPV 10.2 Immature Gran % (Auto) 0.000 Neut % (Auto) 31.1 L Lymph % (Auto) 59.7 H [place] % (Auto) 8.0 Eos % (Auto) 0.8 Baso % (Auto) 0.4 Absolute Neuts (auto) 1.7 L Absolute Lymphs (auto) 3.15 Total Counted Not Reportable PT 13.1 INR 1.0 APTT 26.8 Sodium 143 Potassium 3.5 Chloride 109 H Carbon Dioxide 22.0 Anion Gap 12 BUN 20 H Creatinine 0.73 Estim Creat Clear Calc 70.49 Est GFR (MDRD) Af Amer 107 Est GFR (MDRD) Non-Af 88 BUN/Creatinine Ratio 27.3 H Glucose 115 H Calcium 8.8 Total Bilirubin 0.40 AST 15 ALT 26 Alkaline Phosphatase 74 Troponin I < 0.015 Total Protein 7.8 Albumin 3.8 Globulin 4.0 Albumin/Globulin Ratio 1.0 Urine Color Urine Clarity Urine pH Ur Specific [place] Urine Protein Urine Glucose (UA) Urine Ketones Urine Occult Blood Urine Nitrite Urine Bilirubin Urine Urobilinogen Ur Leukocyte Esterase Urine RBC Urine WBC Ur Squamous Epith Cells Urine Bacteria Urine Mucus Ethyl Alcohol POC Glucose 06/16/18 06/16/18 06/16/18 02:28 03:04 03:40 WBC RBC Hgb Hct MCV MCH MCHC RDW RDW Differential Plt Count MPV Immature Gran % (Auto) Neut % (Auto) Lymph % (Auto) [place] % (Auto) Eos % (Auto) Baso % (Auto) Absolute Neuts (auto) Absolute Lymphs (auto) Total Counted PT INR APTT Sodium Potassium Chloride Carbon Dioxide Anion Gap BUN Creatinine Estim Creat Clear Calc Est GFR (MDRD) Af Amer Est GFR (MDRD) Non-Af BUN/Creatinine Ratio Glucose Calcium Total Bilirubin AST ALT Alkaline Phosphatase Troponin I Total Protein Albumin Globulin Albumin/Globulin Ratio Urine Color Yellow Urine Clarity Sl. Cloudy Urine pH 6.5 Ur Specific [place] 1.015 Urine Protein 15 H Urine Glucose (UA) Normal Urine Ketones Negative Urine Occult Blood Negative Urine Nitrite Negative Urine Bilirubin Negative Urine Urobilinogen Normal Ur Leukocyte Esterase Negative Urine RBC 0 SEEN Urine WBC 0 SEEN Ur Squamous Epith Cells 0-5 SEEN Urine Bacteria RARE Urine Mucus 0 SEEN Ethyl Alcohol < 3.0 POC Glucose 107 Clinical Impression(s) from Imaging Studies Brain CT 06/16/18 02:39 IMPRESSION: No CT evidence of infarct or hemorrhage. Comment: If there is clinical concern for hyperacute ischemia that is not yet apparent by CT, MRI should be considered if possible. Electronically Signed: Vega Mckeon MD at 3:42 EDT Tel , Service support , Chest X-Ray 06/16/18 03:20 IMPRESSION: Normal x-ray examination of the chest. Electronically Signed: Vega Mckeon MD at 3:58 EDT Tel , Service support , Medications Given Discontinued Medications Sodium Chloride () 1,000 mls @ 1,000 mls/hr IV .Q1H ONE Stop: 06/16/18 03:38 Last Admin: 06/16/18 02:58 Dose: 1,000 mls/hr Meclizine HCl (Antivert) 25 mg PO X1 ONE Stop: 06/16/18 05:07 Last Admin: 06/16/18 05:23 Dose: 25 mg Promethazine HCl (Phenergan) 12.5 mg IV X1 ONE Stop: 06/16/18 02:40 Last Admin: 06/16/18 02:58 Dose: 12.5 mg Emergency Department Course and Treatment: Patient was given IV fluids and Phenergan for symptomatic relief. Because she has had a prior episode of vertigo and states this feels similar, including worse symptoms with laying flat or turning to the left, this is most likely a peripheral vertigo. However her testing does not show reproducibility or quick fatigue of symptoms with repositioning, including laying her flat with her head turned to the left. Thus workup was performed to evaluate for alternative causes. Patient had no significant lab abnormalities, including a negative alcohol, negative troponin, no leukocytosis or significant anemia. Head CT showed no acute intracranial process, although this is not sensitive for cerebellar ischemia. Patient received IV fluids and Phenergan for her symptoms. On reevaluation her nausea had resolved but she continued to feel dizzy. She was given a dose of meclizine , and had great improvement in her dizziness. We discussed admission for further workup of her vertigo to rule out a central cause, although again this does seem most likely peripheral, as this is her second episode of the same symptoms and there is a component of additional triggers. Patient did not wish admission at this time and preferred to go home. She has had significant improvement in her symptoms and was able to ambulate without any difficulty, demonstrating no ataxic gait. Patient was given a prescription for meclizine and for Valium. She was discharged home with return precautions. Treatment Plan: [] Disposition: [] Impression: Peripheral vertigo This note was generated with [employer] dictation software. It may contain incorrect words, spelling, and punctuation that were not noted in review of the chart prior to signing ED Disposition - Plan for ED Patient: Disposition: Home or Assisted Living Chief Complaint: Dizziness Instructions: ED Vertigo Unspecified Prescriptions: Diazepam [Valium] 2 mg PO TID PRN PRN 5 Days #10 tab PRN Reason: Vertigo Meclizine HCl 25 mg PO TID PRN #30 tab PRN Reason: Vertigo Referrals: Sterling Melchor MD [Primary Care Provider] - 1-2 Days if not improving Additional Instructions: Please continue to use the meclizine for your dizziness. You may try the Valium if meclizine is not helping enough to control your symptoms. Be very careful when taking the Valium, as it may make you feel loopy or sleepy. If your symptoms worsen or you develop any new concerning symptoms, please return immediately to the emergency department for another evaluation. Please follow-up with your family doctor for another evaluation 1-2 days.
[2018-06-16 02:58] LABS: Absolute Lymphocyte Count 3.15 X10^3/ul (0.83-4.51); Absolute Neutrophil Count 1.7 X10^3/uL (2.0-7.7); Basophil# 0.02 X10^3/uL; Basophil% 0.4 % (0-1); Eosinophil# 0.04 X10^3/uL; Eosinophils% 0.8 % (0-5); Hematocrit 41.4 % (37-47); Hemoglobin 13.7 g/dl (12.0-15.0); Lymphocyte # 3.15 X10^3/ul (4.0); Lymphocyte % 59.7 % (19-41); Mean Corp Hgb Conc 33.1 g/gl (32-36); Mean Corpuscular Hgb 28.7 pg (27.0-32.0); Mean Corpuscular Volume 86.6 fL (81-99); Mean Platelet Vol. 10.2 fl (6.2-12.0); Monocyte# 0.42 X10^3/uL; Neutrophil # 1.65 X10^3/uL (2.7-7.7); Neutrophil % 31.1 % (47-70); Platelet Count 245 K/mm3 (150-450); RBC Distribution Width CV 12.3 % (11.6-14.6); RBC Distribution Width SD 38.8 fl (35.1-43.9); Red Blood Count 4.78 M/mm3 (4.2-5.4); White Blood Count 5.3 K/mm3 (4.4-11.0)
[2018-06-16] MEDS: proMETHazine 25 MG/ML Syringe 12.5 MG IV (02:58)
[2018-06-16] MEDS: 0.9% Normal Saline 1,000 ML 1000 ML IV (02:58)
[2018-06-16 03:00] LABS: POSITIVE COUNT NO; POSITIVE DIFFERENTIAL NO; POSITIVE MORPHOLOGY NO
[2018-06-16 03:01] LABS: Prothrombin Time (Protime)PT. 13.1 SECONDS (11.7-14.9)
[2018-06-16 03:02] LABS: Partial Thromboplast Time 26.8 Seconds (24.1-36.2)
[2018-06-16 03:04] LABS: Alcohol, Blood (Medical)-Serum < 3.0 mg/dL
[2018-06-16 03:11] LABS: AST(SGOT) 15 U/L (15-37); Alanine Aminotransfer ALT/SGPT 26 U/L (13-56); Albumin, Serum 3.8 g/dL (3.2-5.0); Alkaline Phosphatase 74 U/L (45-117); Anion Gap 12 (5-15); BUN 20 mg/dL (7-18); BUN/Creat Ratio 27.3 RATIO (10-20); Calcium,Total 8.8 mg/dL (8.5-10.1); Chloride 109 mmol/L (98-107); Creatinine, Serum 0.73 mg/dL (0.55-1.02); EST Glomerular Filtration Rate 88 mL/min (>60); Est Glom Filt Rate - Afr Amer 107 mL/min (>60); Estimated Creatinine Clearance 70.49 ml/min; Glucose 115 mg/dL (74-106); Potassium 3.5 mmol/L (3.5-5.1); Protein, Total 7.8 g/dL (6.4-8.2); Sodium Level 143 mmol/L (136-145)
[2018-06-16 03:11] LABS: Bedside Glucose 107 mg/dL (70-110)
--- NOTE | 2018-06-16 03:20 | RAD_ITS ---
STUDY: X-RAY CHEST REASON FOR EXAM: Female, 53 years old. Dizziness TECHNIQUE: Single frontal view of the chest. COMPARISON: None. FINDINGS: The lungs are clear and expanded. There is no demonstrated pleural abnormality. Normal size heart. Normal mediastinum and lópez. Normal visualized pulmonary arteries. Normal visualized aortic arch and descending thoracic aorta. Normal visualized thoracic spine. Normal visualized ribs, clavicles, and shoulders. There is no demonstrated abnormality of the visualized soft tissue structures of the upper abdomen. RAD/Chest 1 View (Portable) IMPRESSION: Normal x-ray examination of the chest. Electronically Signed: Vega Mckeon MD at 3:58 EDT Tel , Service support ,
[2018-06-16 03:45] LABS: Mucous, Urine 0 SEEN /hpf (<or=2+); Red Blood Cells-Urine 0 SEEN /hpf (0-5); White Blood Cells 0 SEEN /hpf (0-5)
[2018-06-16 03:46] LABS: Color, Urine Yellow (Yellow); Glucose, Dipstick Normal (Normal); Ketone-Dipstick Negative (Negative); Leukocyte Esterase-Dipstick Negative /ul (Negative); Nitrite-Dipstick Negative (Negative); Occult Blood-Urine Negative /ul (Negative); Protein-Dipstick 15 mg/dl (Negative); Specific Gravity, Urine 1.015 (1.002-1.030); Urine Bilirubin Dipstick Negative (Negative); Urine Clarity Sl. Cloudy (Clear); Urine Urobilinogen Normal (Normal); Urine pH 6.5 (5.0 - 8.0)
[2018-06-16 03:52] LABS: Bacteria RARE /hpf (None Seen); Squamous Epithelial Cells - UA 0-5 SEEN /hpf (5-10)
[2018-06-16] MEDS: Meclizine HCl 25 MG Tablet PO (05:23)
[2018-06-16 05:24] VITALS: BP 125/79; PULSE 71; RESP 16; O2SAT 98
--- NOTE | 2018-06-16 06:06 | ED.DEP ---
ED Disposition - Plan for ED Patient: Disposition: Home or Assisted Living Chief Complaint: Dizziness Instructions: ED Vertigo Unspecified Prescriptions: Diazepam [Valium] 2 mg PO TID PRN PRN 5 Days #10 tab PRN Reason: Vertigo Meclizine HCl 25 mg PO TID PRN #30 tab PRN Reason: Vertigo Referrals: Sterling Melchor MD [Primary Care Provider] - 1-2 Days if not improving Additional Instructions: Please continue to use the meclizine for your dizziness. You may try the Valium if meclizine is not helping enough to control your symptoms. Be very careful when taking the Valium, as it may make you feel loopy or sleepy. If your symptoms worsen or you develop any new concerning symptoms, please return immediately to the emergency department for another evaluation. Please follow-up with your family doctor for another evaluation 1-2 days.
[2018-06-16 06:15] VITALS: BP 131/81; PULSE 61; RESP 15; O2SAT 97
== END 2018-06-16 06:16 | disposition home or self-care (01) ==
PROVIDERS: Emergency Provider Emergency Medicine; Family Provider Family Medicine; PCP Family Medicine
DX: H81.399 Other peripheral vertigo, unspecified ear (principal); R11.2 Nausea with vomiting, unspecified; R51 Headache; E03.9 Hypothyroidism, unspecified; Z79.899 Other long term (current) drug therapy
CPT/HCPCS: 70450; 71045; 80053; 80320; 81001; 82962; 84484; 85025; 85610; 85730; 93005; 96361; 96374; 99285; J7030; A4216; G0480

== ENCOUNTER → 2019-03-21 07:24 | Outpatient (CLI) | payer BC, SELFPAY ==
[2019-03-21 10:25] LABS: Anion Gap 7 (5-15); BUN 20 mg/dL (7-18); Chloride 109 mmol/L (98-107); Cholesterol 168 mg/dL (200); Creatinine, Serum 0.71 mg/dL (0.55-1.02); EST Glomerular Filtration Rate 91 mL/min (>60); Est Glom Filt Rate - Afr Amer 110 mL/min (>60); Glucose 83 mg/dL (74-106); High Density Lipoprotein 43 mg/dL; Potassium 4.1 mmol/L (3.5-5.1); Sodium Level 142 mmol/L (136-145); Triglycerides 166 mg/dL; Very Low Density Lipoprotein 33 mg/dL (5-40)
== END ==
PROVIDERS: Family Provider Family Medicine; PCP Family Medicine; Referring Provider Nurse Practitioner Adult Health; Visit Provider Nurse Practitioner Adult Health
DX: Z13.1 Encounter for screening for diabetes mellitus (principal); Z13.220 Encounter for screening for lipoid disorders
CPT/HCPCS: 36415; 80048; 80061

== ENCOUNTER → 2019-03-22 08:15 | Outpatient (CLI) | payer BC, SELFPAY ==
--- NOTE | 2019-03-22 08:16 | BI_ITS ---
MAMMOGRAPHY - BILATERAL SCREENING REASON FOR EXAM: Female, 54 years old. Routine annual screening examination. PERTINENT HISTORY: Non-contributory. TECHNIQUE: Digital bilateral breast noel (3D mammographic acquisition) in the CC and MLO projections. 2-D mediolateral oblique (MLO) and craniocaudad (CC) views of both breasts were obtained. CAD: Full Field Digital Mammography with Computer Added Detection was performed. COMPARISON: Comparison is made with prior study dated March 09, 2018 and February 27, 2017. FINDINGS: Breast Composition: The breasts are heterogeneously dense, which may obscure small masses. There are no dominant masses or suspicious calcifications. Stable appearance of the right axillary lymph nodes. No other significant abnormalities are identified. There has been no significant change since the prior study. BI/SCREEN MAMM (CAD) W/NOEL BILAT IMPRESSION: Stable bilateral screening mammogram. Yearly follow-up mammogram recommended. (A) ASSESSMENT CATEGORY: BIRADS Category 2: Benign. A letter regarding these results will be sent to the patient by the facility within 30 days. Approximately 10% of breast cancers are not detected by mammography. A normal mammogram should not delay biopsy of a clinically suspicious abnormality. [id number] Electronically Signed: Jaylen León, at 11:29 EDT , Service support ,
== END ==
PROVIDERS: Family Provider Family Medicine; PCP Family Medicine; Referring Provider Nurse Practitioner Adult Health; Visit Provider Nurse Practitioner Adult Health
DX: Z12.31 Encounter for screening mammogram for malignant neoplasm of breast (principal)
CPT/HCPCS: 77063; 77067

== ENCOUNTER → 2020-04-01 06:58 | Outpatient (CLI) | payer BC, SELFPAY ==
[2020-04-01 08:27] LABS: Anion Gap 5 (5-15); BUN 20 mg/dL (7-18); Calcium,Total 8.7 mg/dL (8.5-10.1); Chloride 108 mmol/L (98-107); Cholesterol 145 mg/dL (200); Creatinine, Serum 0.57 mg/dL (0.55-1.02); EST Glomerular Filtration Rate 117 mL/min (>60); Est Glom Filt Rate - Afr Amer 141 mL/min (>60); Glucose 86 mg/dL (74-106); High Density Lipoprotein 45 mg/dL; Potassium 3.8 mmol/L (3.5-5.1); Sodium Level 139 mmol/L (136-145); Thyroid Stim Hormone (TSH) < 0.01 uIU/mL (0.358-3.74); Triglycerides 112 mg/dL; Very Low Density Lipoprotein 22 mg/dL (5-40)
== END ==
PROVIDERS: PCP Family Medicine; Referring Provider Nurse Practitioner Adult Health; Visit Provider Nurse Practitioner Adult Health
DX: E03.9 Hypothyroidism, unspecified (principal); Z13.1 Encounter for screening for diabetes mellitus; Z13.220 Encounter for screening for lipoid disorders
CPT/HCPCS: 36415; 80048; 80061; 84443

== ENCOUNTER → 2020-05-14 15:40 | Outpatient (CLI) | payer BC, SELFPAY ==
--- NOTE | 2020-05-14 16:03 | BI_ITS ---
MAMMOGRAPHY - BILATERAL SCREENING REASON FOR EXAM: Female, 55 years old. Routine annual screening examination. PERTINENT HISTORY: Non-contributory. TECHNIQUE: Digital bilateral breast noel (3D mammographic acquisition) in the CC and MLO projections. 2-D mediolateral oblique (MLO) and craniocaudad (CC) views of both breasts were obtained. CAD: Full Field Digital Mammography with Computer Added Detection was performed. COMPARISON: Comparison is made with prior study dated 03/22/2019 and 03/09/2018. FINDINGS: Breast Composition: The breasts are heterogeneously dense, which may obscure small masses. There are no dominant masses or suspicious calcifications. Stable small benign appearing bilateral axillary lymph nodes. No other significant abnormalities are identified. There has been no significant change since the prior study. BI/SCREEN MAMM (CAD) W/NOEL BILAT IMPRESSION: Stable bilateral screening mammogram. Yearly follow-up mammogram recommended. (A) ASSESSMENT CATEGORY: BIRADS Category 2: Benign. A letter regarding these results will be sent to the patient by the facility within 30 days. Approximately 10% of breast cancers are not detected by mammography. A normal mammogram should not delay biopsy of a clinically suspicious abnormality. [id number] Electronically Signed: Jaylen León, at 9:20 EDT , Service support ,
== END ==
PROVIDERS: PCP Family Medicine; Referring Provider Nurse Practitioner Adult Health; Visit Provider Nurse Practitioner Adult Health
DX: Z12.31 Encounter for screening mammogram for malignant neoplasm of breast (principal)
CPT/HCPCS: 77063; 77067

== ENCOUNTER → 2021-03-31 12:33 | Outpatient (CLI) | payer BC, SELFPAY ==
[2021-03-31 14:59] LABS: Absolute Lymphocyte Count 2.32 X10^3/uL (0.83-4.51); Absolute Neutrophil Count 1.9 X10^3/uL (2.0-7.7); Basophil# 0.03 X10^3/uL; Basophil% 0.6 % (0-1); Eosinophil# 0.05 X10^3/uL; Eosinophils% 1.1 % (0-5); Hematocrit 42.4 % (37-47); Hemoglobin 13.3 g/dL (12.0-15.0); Lymphocyte # 2.32 X10^3/ul (0.83-4.51); Lymphocyte % 48.9 % (19-41); Mean Corp Hgb Conc 31.4 g/dL (32-36); Mean Corpuscular Hgb 28.4 pg (27.0-32.0); Mean Corpuscular Volume 90.4 fL (81-99); Mean Platelet Vol. 10.5 fl (6.2-12.0); Monocyte# 0.42 X10^3/uL; Monocyte% 8.9 % (0-10); NRBC Flagged by Analyzer 0 % (0-5); Neutrophil # 1.92 X10^3/uL (2.7-7.7); Neutrophil % 40.5 % (47-70); Platelet Count 231 K/mm3 (150-450); RBC Distribution Width CV 12.6 % (11.6-14.6); RBC Distribution Width SD 41.1 fl (35.1-43.9); Red Blood Count 4.69 M/mm3 (4.2-5.4); White Blood Count 4.7 K/mm3 (4.4-11.0)
[2021-03-31 15:11] LABS: Vitamin B12 697 pg/mL (211-911)
[2021-03-31 16:04] LABS: ALB/GLOB Ratio 0.9 RATIO (0.9-2.4); AST(SGOT) 25 U/L (15-37); Alanine Aminotransfer ALT/SGPT 51 U/L (13-56); Albumin, Serum 3.8 g/dL (3.2-5.0); Alkaline Phosphatase 89 U/L (45-117); Anion Gap 5 (5-15); BUN 24 mg/dL (7-18); BUN/Creat Ratio 30.5 RATIO (10-20); Chloride 110 mmol/L (98-107); Creatinine, Serum 0.79 mg/dL (0.55-1.02); EST Glomerular Filtration Rate 80 mL/min (>60); Est Glom Filt Rate - Afr Amer 97 mL/min (>60); Ferritin 101 ng/mL (8-252); Free T3 2.5 pg/mL (2.18-3.98); Globulin 4.1 g/dL (2.2-4.2); Glucose 93 mg/dL (74-106); Potassium 4.1 mmol/L (3.5-5.1); Protein, Total 7.9 g/dL (6.4-8.2); Sodium Level 139 mmol/L (136-145); T4 Free Direct 0.83 ng/dL (0.76-1.46); Thyroid Stim Hormone (TSH) 3.04 uIU/mL (0.358-3.74)
== END ==
PROVIDERS: PCP Family Medicine; Referring Provider Family Medicine; Visit Provider Family Medicine
DX: B18.1 Chronic viral hepatitis B without delta-agent (principal); E03.9 Hypothyroidism, unspecified; R53.81 Other malaise; R53.83 Other fatigue
CPT/HCPCS: 36415; 80053; 82607; 82728; 82746; 84439; 84443; 84481; 85025

== ENCOUNTER → 2021-06-01 07:00 | Outpatient (CLI) | payer BC, SELFPAY ==
--- NOTE | 2021-06-01 07:03 | BI_ITS ---
MAMMOGRAPHY - BILATERAL SCREENING REASON FOR EXAM: Female, 56 years old. Routine annual screening examination. PERTINENT HISTORY: Non-contributory. TECHNIQUE: Digital bilateral breast noel (3D mammographic acquisition) in the CC and MLO projections. 2-D mediolateral oblique (MLO) and craniocaudad (CC) views of both breasts were obtained. CAD: Full Field Digital Mammography with Computer Added Detection was performed. COMPARISON: Comparison is made with prior examination dated 05/14/2020 and 03/22/2019. FINDINGS: Breast Composition: The breasts are heterogeneously dense, which may obscure small masses. There are no dominant masses or suspicious calcifications. Stable benign-appearing bilateral axillary lymph nodes. No other significant abnormalities are identified. There has been no significant change since the prior study. BI/SCRN MAMM (CAD)W/NOEL BILAT IMPRESSION: Stable bilateral screening mammogram. Yearly follow-up mammogram recommended. (A) ASSESSMENT CATEGORY: BIRADS Category 2: Benign. A letter regarding these results will be sent to the patient by the facility within 30 days. Approximately 10% of breast cancers are not detected by mammography. A normal mammogram should not delay biopsy of a clinically suspicious abnormality. [id number] Electronically Signed: Jaylen León MD at 8:32 EDT , Service support ,
== END ==
PROVIDERS: PCP Family Medicine; Referring Provider Nurse Practitioner Family; Visit Provider Nurse Practitioner Family
DX: Z12.31 Encounter for screening mammogram for malignant neoplasm of breast (principal)
CPT/HCPCS: 77063; 77067

== ENCOUNTER → 2021-09-05 16:29 | Outpatient (CLI) | payer BC, SELFPAY ==
[2021-09-05 18:39] LABS: T4 Free Direct 1.15 ng/dL (0.76-1.46); Thyroid Stim Hormone (TSH) 0.05 uIU/mL (0.358-3.74)
== END ==
PROVIDERS: PCP Family Medicine; Visit Provider Family Medicine
DX: E03.9 Hypothyroidism, unspecified (principal)
CPT/HCPCS: 36415; 84439; 84443

== ENCOUNTER 2021-10-19 14:54 | Outpatient (CLI) | payer OTHER, SELFPAY ==
[2021-10-20 07:22] LABS: T4 Free Direct 0.93 ng/dL (0.76-1.46)
== END 2021-10-19 23:59 | disposition short-term general hospital (02) ==
PROVIDERS: PCP Family Medicine; Referring Provider Family Medicine; Visit Provider Family Medicine
DX: E03.9 Hypothyroidism, unspecified (principal)
CPT/HCPCS: 36415; 84439; 84443

== ENCOUNTER → 2022-06-05 | Outpatient (CLI) | payer OTHER, SELFPAY ==
[2022-06-05 18:15] LABS: ALB/GLOB Ratio 0.9 RATIO (0.9-2.4); AST(SGOT) 19 U/L (15-37); Alanine Aminotransfer ALT/SGPT 28 U/L (13-56); Albumin, Serum 3.9 g/dL (3.2-5.0); Alkaline Phosphatase 89 U/L (45-117); Anion Gap 8 (5-15); BUN 22 mg/dL (7-18); BUN/Creat Ratio 29.1 RATIO (10-20); Calcium,Total 9.4 mg/dL (8.5-10.1); Chloride 109 mmol/L (98-107); Creatinine, Serum 0.76 mg/dL (0.55-1.02); EST Glomerular Filtration Rate 84 mL/min (>60); Est Glom Filt Rate - Afr Amer 101 mL/min (>60); Globulin 4.3 g/dL (2.2-4.2); Glucose 86 mg/dL (74-106); Potassium 3.8 mmol/L (3.5-5.1); Protein, Total 8.2 g/dL (6.4-8.2); Sodium Level 142 mmol/L (136-145)
[2022-06-05 18:31] LABS: Microalbumin,Random Urine 9.9 mg/L (NO RANGE EST.); Microalbumin:Creatinine Ratio 13.5 mg/g CRE (<30 mg/g CRE)
== END | disposition home or self-care (01) ==
LOC: MTLAB 16:40
PROVIDERS: PCP Family Medicine; Referring Provider Family Medicine; Visit Provider Family Medicine
DX: I10 Essential (primary) hypertension (principal)
CPT/HCPCS: 36415; 80053; 82043; 82570

== ENCOUNTER → 2022-07-05 | Outpatient (CLI) | payer OTHER, SELFPAY ==
--- NOTE | 2022-07-05 07:38 | BI_ITS ---
MAMMOGRAPHY - BILATERAL SCREENING REASON FOR EXAM: Female, 57 years old. Routine annual screening examination. PERTINENT HISTORY: Non-contributory. TECHNIQUE: Digital bilateral breast noel (3D mammographic acquisition) in the CC and MLO projections. 2-D mediolateral oblique (MLO) and craniocaudad (CC) views of both breasts were obtained. CAD: Full Field Digital Mammography with Computer Added Detection was performed. COMPARISON: Comparison is made with prior study date 06/01/2021 and 05/14/2020. FINDINGS: Breast Composition: The breasts are heterogeneously dense, which may obscure small masses. There are no dominant masses or suspicious calcifications. Stable small benign-appearing bilateral axillary lymph nodes. No other significant abnormalities are identified. There has been no significant change since the prior study. BI/SCRN MAMM (CAD)W/NOEL BILAT IMPRESSION: Stable bilateral screening mammogram. Yearly follow-up mammogram recommended. (A) ASSESSMENT CATEGORY: BIRADS Category 2: Benign. A letter regarding these results will be sent to the patient by the facility within 30 days. Approximately 10% of breast cancers are not detected by mammography. A normal mammogram should not delay biopsy of a clinically suspicious abnormality. [id number] Electronically Signed: Jaylen León MD at 9:04 EDT ,
== END | disposition home or self-care (01) ==
LOC: OPBI 07:35
PROVIDERS: PCP Family Medicine; Visit Provider Family Medicine
DX: Z12.31 Encounter for screening mammogram for malignant neoplasm of breast (principal)
CPT/HCPCS: 77063; 77067

== ENCOUNTER → 2023-03-09 | Outpatient (CLI) | payer OTHER, SELFPAY ==
[2023-03-09 10:08] LABS: Hematocrit 43.5 % (37-47); Hemoglobin 13.9 g/dL (12.0-15.0); Mean Corpuscular Hgb 28.9 pg (27.0-32.0); Mean Corpuscular Volume 90.4 fL (81-99); Mean Platelet Vol. 10.2 fl (6.2-12.0); Platelet Count 196 K/mm3 (150-450); RBC Distribution Width CV 11.9 % (11.6-14.6); Red Blood Count 4.81 M/mm3 (4.2-5.4)
[2023-03-09 10:46] LABS: ALB/GLOB Ratio 0.9 RATIO (0.9-2.4); AST(SGOT) 17 U/L (15-37); Alanine Aminotransfer ALT/SGPT 28 U/L (13-56); Albumin, Serum 3.7 g/dL (3.2-5.0); Alkaline Phosphatase 73 U/L (45-117); Anion Gap 7 (5-15); BUN 13 mg/dL (7-18); Calcium,Total 9.2 mg/dL (8.5-10.1); Chloride 107 mmol/L (98-107); Creatinine, Serum 0.69 mg/dL (0.55-1.02); EST Glomerular Filtration Rate 94 mL/min (>60); Est Glom Filt Rate - Afr Amer 113 mL/min (>60); Free T3 2.7 pg/mL (2.18-3.98); Globulin 4.2 g/dL (2.2-4.2); Glucose 106 mg/dL (74-106); Potassium 3.8 mmol/L (3.5-5.1); Protein, Total 7.9 g/dL (6.4-8.2); Sodium Level 142 mmol/L (136-145); T4 Free Direct 1.04 ng/dL (0.76-1.46); Thyroid Stim Hormone (TSH) 1.59 uIU/mL (0.358-3.74)
== END | disposition home or self-care (01) ==
LOC: MTLAB 08:55
PROVIDERS: PCP Family Medicine; Referring Provider Family Medicine; Visit Provider Family Medicine
DX: E03.9 Hypothyroidism, unspecified (principal); B18.1 Chronic viral hepatitis B without delta-agent; I10 Essential (primary) hypertension
CPT/HCPCS: 36415; 80053; 84439; 84443; 84481; 85027

== ENCOUNTER → 2023-03-26 | Outpatient (CLI) | payer OTHER, SELFPAY ==
[2023-03-26 15:52] LABS: Microalbumin,Random Urine 5.7 mg/L (NO RANGE EST.); Microalbumin:Creatinine Ratio 13.3 mg/g CRE (<30 mg/g CRE)
== END | disposition home or self-care (01) ==
LOC: LABSPEC 13:58
PROVIDERS: PCP Family Medicine; Visit Provider Family Medicine
DX: E03.9 Hypothyroidism, unspecified (principal); B18.1 Chronic viral hepatitis B without delta-agent; I10 Essential (primary) hypertension
CPT/HCPCS: 82043; 82570

== ENCOUNTER → 2023-08-17 | Outpatient (CLI) | payer OTHER, SELFPAY ==
--- NOTE | 2023-08-17 13:44 | BI_ITS ---
MAMMOGRAPHY - BILATERAL SCREENING REASON FOR EXAM: Female, 58 years old. Routine annual screening examination. PERTINENT HISTORY: Non-contributory. TECHNIQUE: Digital bilateral breast noel (3D mammographic acquisition) in the CC and MLO projections. 2-D mediolateral oblique (MLO) and craniocaudad (CC) views of both breasts were obtained. CAD: Full Field Digital Mammography with Computer Added Detection was performed. COMPARISON: Comparison is made with prior study dated July 05, 2022 and June 01, 2021. FINDINGS: Breast Composition: The breasts are heterogeneously dense, which may obscure small masses. There are no dominant masses or suspicious calcifications. Stable small benign-appearing bilateral axillary lymph nodes. No other significant abnormalities are identified. There has been no significant change since the prior study. BI/SCRN MAMM (CAD)W/NOEL BILAT IMPRESSION: Stable bilateral screening mammogram. Yearly follow-up mammogram recommended. (A) ASSESSMENT CATEGORY: BIRADS Category 2: Benign. A letter regarding these results will be sent to the patient by the facility within 30 days. Approximately 10% of breast cancers are not detected by mammography. A normal mammogram should not delay biopsy of a clinically suspicious abnormality. [id number] Electronically Signed: Jaylen León MD at 10:18 EST ,
== END | disposition home or self-care (01) ==
LOC: OPBI 13:43
PROVIDERS: PCP Family Medicine; Visit Provider Nurse Practitioner Family
DX: Z12.31 Encounter for screening mammogram for malignant neoplasm of breast (principal)
CPT/HCPCS: 77063; 77067

== ENCOUNTER → 2023-11-15 | Outpatient (CLI) | payer OTHER, SELFPAY ==
[2023-11-15 17:49] LABS: Absolute Lymphocyte Count 2.56 X10^3/uL (0.83-4.51); Basophil# 0.02 X10^3/uL; Basophil% 0.4 % (0-1); Eosinophil# 0.05 X10^3/uL; Hematocrit 43.2 % (37-47); Hemoglobin 13.6 g/dL (12.0-15.0); Lymphocyte # 2.56 X10^3/ul (0.83-4.51); Lymphocyte % 50.6 % (19-41); Mean Corp Hgb Conc 31.5 g/dL (32-36); Mean Corpuscular Volume 89.1 fL (81-99); Mean Platelet Vol. 10.2 fl (6.2-12.0); Monocyte% 7.9 % (0-10); NRBC Flagged by Analyzer 0 % (0-5); Neutrophil # 2.03 X10^3/uL (2.7-7.7); Neutrophil % 40.1 % (47-70); Platelet Count 224 K/mm3 (150-450); RBC Distribution Width CV 12.2 % (11.6-14.6); RBC Distribution Width SD 39.8 fl (35.1-43.9); Red Blood Count 4.85 M/mm3 (4.2-5.4); White Blood Count 5.1 K/mm3 (4.4-11.0)
[2023-11-15 18:27] LABS: Microalbumin,Random Urine 6.6 mg/L (NO RANGE EST.); Microalbumin:Creatinine Ratio 10.9 mg/g CRE (<30 mg/g CRE)
[2023-11-15 18:53] LABS: AST(SGOT) 23 U/L (15-37); Alanine Aminotransfer ALT/SGPT 37 U/L (13-56); Albumin, Serum 3.9 g/dL (3.2-5.0); Alkaline Phosphatase 69 U/L (45-117); Anion Gap 6 (5-15); BUN 21 mg/dL (7-18); BUN/Creat Ratio 29.9 RATIO (10-20); Chloride 110 mmol/L (98-107); Cholesterol 215 mg/dL (200); EST Glomerular Filtration Rate 91 mL/min (>60); Est Glom Filt Rate - Afr Amer 110 mL/min (>60); GGTP 34 U/L (5-55); Globulin 4.1 g/dL (2.2-4.2); Glucose 122 mg/dL (74-106); High Density Lipoprotein 49 mg/dL; Potassium 3.6 mmol/L (3.5-5.1); Sodium Level 140 mmol/L (136-145); T4 Free Direct 1.07 ng/dL (0.76-1.46); Thyroid Stim Hormone (TSH) 1.79 uIU/mL (0.358-3.74); Triglycerides 219 mg/dL; Very Low Density Lipoprotein 44 mg/dL (5-40)
== END | disposition home or self-care (01) ==
LOC: MFPLAB 16:20
PROVIDERS: PCP Family Medicine; Visit Provider Family Medicine
DX: I10 Essential (primary) hypertension (principal); B18.1 Chronic viral hepatitis B without delta-agent; E03.9 Hypothyroidism, unspecified; F41.9 Anxiety disorder, unspecified
CPT/HCPCS: 36415; 80053; 80061; 82043; 82570; 82977; 84439; 84443; 85025

== ENCOUNTER → 2024-05-05 | Outpatient (CLI) | payer OTHER, SELFPAY ==
[2024-05-05 10:12] LABS: Absolute Lymphocyte Count 2.19 X10^3/uL (0.83-4.51); Absolute Neutrophil Count 1.7 X10^3/uL (2.0-7.7); Basophil# 0.03 X10^3/uL; Basophil% 0.7 % (0-1); Eosinophil# 0.04 X10^3/uL; Eosinophils% 0.9 % (0-5); Hematocrit 43.2 % (37-47); Hemoglobin 13.3 g/dL (12.0-15.0); Lymphocyte # 2.19 X10^3/ul (0.83-4.51); Lymphocyte % 50.7 % (19-41); Mean Corp Hgb Conc 30.8 g/dL (32-36); Mean Corpuscular Volume 90.9 fL (81-99); Mean Platelet Vol. 10.9 fl (6.2-12.0); Monocyte# 0.37 X10^3/uL; Monocyte% 8.6 % (0-10); NRBC Flagged by Analyzer 0 % (0-5); Neutrophil # 1.69 X10^3/uL (2.7-7.7); Neutrophil % 39.1 % (47-70); Platelet Count 201 K/mm3 (150-450); RBC Distribution Width SD 42.9 fl (35.1-43.9); Red Blood Count 4.75 M/mm3 (4.2-5.4); White Blood Count 4.3 K/mm3 (4.4-11.0)
[2024-05-05 11:44] LABS: ALB/GLOB Ratio 0.9 RATIO (0.9-2.4); AST(SGOT) 26 U/L (15-37); Alanine Aminotransfer ALT/SGPT 46 U/L (13-56); Albumin, Serum 3.8 g/dL (3.2-5.0); Alkaline Phosphatase 66 U/L (45-117); Anion Gap 5 (5-15); BUN 16 mg/dL (7-18); BUN/Creat Ratio 20.2 RATIO (10-20); Calcium,Total 8.9 mg/dL (8.5-10.1); Chloride 110 mmol/L (98-107); Cholesterol 194 mg/dL (200); Creatinine, Serum 0.79 mg/dL (0.55-1.02); EST Glomerular Filtration Rate 79 mL/min (>60); Est Glom Filt Rate - Afr Amer 96 mL/min (>60); Globulin 4.2 g/dL (2.2-4.2); Glucose 94 mg/dL (74-106); High Density Lipoprotein 45 mg/dL; Potassium 3.8 mmol/L (3.5-5.1); Sodium Level 139 mmol/L (136-145); Thyroid Stim Hormone (TSH) 2.11 uIU/mL (0.358-3.74); Triglycerides 189 mg/dL; Very Low Density Lipoprotein 38 mg/dL (5-40)
[2024-05-05 12:13] LABS: Microalbumin,Random Urine 23.4 mg/L (NO RANGE EST.)
== END | disposition home or self-care (01) ==
LOC: MFPLAB 08:04
PROVIDERS: PCP Family Medicine; Visit Provider Family Medicine
DX: I10 Essential (primary) hypertension (principal); E03.9 Hypothyroidism, unspecified
CPT/HCPCS: 36415; 80053; 80061; 82043; 82570; 84443; 85025

== ENCOUNTER → 2024-10-22 | Outpatient (CLI) | payer OTHER, SELFPAY ==
--- NOTE | 2024-10-22 07:06 | BI_ITS ---
PROCEDURE: SCRN MAMM (CAD)W/NOEL BILAT REASON FOR EXAM: F, Age 59 y/o, no family history. Routine mammogram. TECHNIQUE: Bilateral screening digital breast tomosynthesis with 2D and 3D images. Computer aided detection. COMPARISON: Prior exam(s) dating back to August 17, 2023.. FINDINGS: The breasts are heterogeneously dense which may obscure small masses. Stable examination. Small bilateral axillary lymph nodes. No suspicious masses, areas of developing architectural distortion, or suspicious calcifications. BI/SCRN MAMM (CAD)W/NOEL BILAT IMPRESSION: BI-RADS 2: BENIGN. RECOMMEND ANNUAL MAMMOGRAPHIC SCREENING. Follow-up code: Routine Follow-up The patient will be notified of the results by letter. Reading Location: [place] [id number]
== END | disposition home or self-care (01) ==
PROVIDERS: PCP Family Medicine; Referring Provider Family Medicine; Visit Provider Family Medicine
DX: Z12.31 Encounter for screening mammogram for malignant neoplasm of breast (principal)
CPT/HCPCS: 77063; 77067

== ENCOUNTER → 2025-05-11 | Outpatient (CLI) | payer OTHER, SELFPAY ==
--- OUTSIDE RECORDS SUMMARY | 2025-05-11 07:26 | XMS RPT_ITS | CCD ---
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 Name Role Phone Sterling Melchor Referring Unavailable Sterling Melchor Primary Care Unavailable Sterling Melchor Attending Unavailable Sterling Melchor Attending Unavailable Sterling Melchor Primary Care Unavailable Sterling Mlechor Attending Unavailable Sterling Melchor Primary Care Unavailable Medications Current Medications Medication Drug Class(es) Dates Sig (Normalized) Sig (Original) diazePAM 2 mg oral tablet (5 sources) Benzodiazepine Start: 06-16-2018 take 2 mg by mouth three times daily as needed Diazepam Active 2 MG PO 3 TIMES DAILY NEEDED 10 June 15, 2018 11:00pm fluticasone propionate 0.05 mg/actuat metered dose nasal spray (5 sources) Corticosteroid Start: 06-16-2018 Fluticasone Propionate Active 1 - 2 SPRAY NASAL DAILY June 15, 2018 11:00pm levothyroxine sodium 0.075 mg oral tablet (5 sources) l-Thyroxine Start: 11-13-2017 take 75 ug by mouth once daily Levothyroxine Active 75 MCG PO DAILY November 13, 2017 12:00am meclizine hydrochloride 25 mg oral tablet (5 sources) Antiemetic Start: 06-16-2018 take 25 mg by mouth three times daily Meclizine Active 25 MG PO THREE TIMES A DAY June 16, 2018 5:05am Problems Problem Classification Problem Date Documented Da te Episodic/Chronic Benign neoplasm of uterus (5 sources) Uterine leiomyoma; Translations: [Leiomyoma of uterus, unspecified] 02-14-2018 Episodic Essential hypertension (1 source) Essential (primary) hypertension; Translations: [Essential (primary) hypertension] Onset: 06-02-2024 Chronic Menstrual disorders (5 sources) Menorrhagia; Translations: [Excessive and frequent menstruation with regular cycle] 02-14-2018 Chronic Other screening for suspected conditions (not mental disorders or infectious disease) (1 source) Encounter for screening mammogram for malignant neoplasm of breast; Translations: [Encounter for screening mammogram for malignant neoplasm of breast] Onset: 11-04-2024 Episodic Results Test Name Value Interpretation Reference Range Facility SCRN MAMM (CAD)W/NOEL BILATo n 10-22-2024 SCRN MAMM (CAD)W/NOEL BILAT [facility] Imaging Services [address] [place] [address] SCRN MAMM (CAD)W/NOEL BILAT MR#: [id number] Acct: [id number] Name: BO MCKEON Rep #: [id number] : 1965 F 59 From: Jaylen gagnon MD PCP: Dr. Sterling Melchor MD Status: [facility] Study: SCRN MAMM (CAD)W/NOEL BILAT Date of Exam: 09/25 06/18 Exam# [id number] Ordering Dr: Sterling Melchor MD PROCEDURE: SCRN MAMM (CAD)W/NOEL BILAT REASON FOR EXAM: F, Age 59 y/o, no family history. Routine mammogram. TECHNIQUE: Bilateral screening digital breast tomosynthesis with 2D and 3D images. Computer aided detection. COMPARISON: Prior exam(s) dating back to August 17, 2023.. FINDINGS: The breasts are heterogeneously dense which may obscure small masses. Stable examination. Small bilateral axillary lymph nodes. No suspicious masses, areas of developing architectural distortion, or suspicious calcifications. BI/SCRN MAMM (CAD)W/NOEL BILAT IMPRESSION: BI-RADS 2: BENIGN. RECOMMEND ANNUAL MAMMOGRAPHIC SCREENING. Follow-up code: Routine Follow-up The patient will be notified of the results by letter. Reading Location: [place] [address] CC: Dr. Sterling Melchor MD Toe Puller: Signed Normal [facility] CBC W/Diff, Automatedon 04-24 Absolute Lymph 2.19 X10 3/uL Normal 0.83-4.51 [facility] Comment on above: Order Comment: Order Date: 02/15/24 Order Info: 0184-1 - CBCD Performed By: #### L 501.9520, L100.0100, L500.4050, L502.0250, L500.4100 #### [facility] [address] [place], [address] Absolute Neut 1.7 X10 3/uL Low 2.0-7.7 [facility] Comment on above: Order Comment: Order Date: 02/15/24 Order Info: 0184-1 - CBCD Performed By: #### L 501.9520, L100.0100, L500.4050, L502.0250, L500.4100 #### [facility] [address] [place], [address] Basophils/100 WBC (Bld) 0.7 % Normal 0-1 [facility] Comment on above: Order Comment: Order Date: 02/15/24 Order Info: 018-1 - CBCD Performed By: #### L 501.9520, L100.0100, L500.4050, L502.0250, L500.4100 #### [facility] [address] [place], [address] Eosinophils/100 WBC (Bld) 0.9 % Normal 0-5 [facility] Comment on above: Order Comment: Order Date: 02/15/24 Order Info: 0184- - CBCD Performed By: #### L 501.9520, L100.0100, L500.4050, L502.0250, L500.4100 #### [facility] [address] [place], [address] Erythrocyte distribution width (RBC) [Ratio] 13.0 % Normal 11.6-14.6 [facility] Comment on above: Order Comment: Order Date: 02/15/24 Order Info: 0184-1 - CBCD Performed By: #### L 501.9520, L100.0100, L500.4050, L502.0250, L500.4100 #### [facility] [address] [place], [address] Hematocrit (Bld) [Volume fraction] 43.2 % Normal 37-47 [facility] Comment on above: Order Comment: Order Date: 02/15/24 Order Info: 0184-1 - CBCD Performed By: #### L 501.9520, L100.0100, L500.4050, L502.0250, L500.4100 #### [facility] [address] [place], [address] Hemoglobin (Bld) [Mass/Vol] 13.3 g/dL Normal 12.0-15.0 [facility] Comment on above: Order Comment: Order Date: 02/15/24 Order Info: 0184-1 - CBCD Performed By: #### L 501.9520, L100.0100, L500.4050, L502.0250, L500.4100 #### [facility] [address] [place], [address] IG% 0.000 Normal 0.0-0.9 [facility] Comment on above: Order Comment: Order Date: 02/15/24 Order Info: 0184-1 - CBCD Result Comment: IG% - Immature Granulocytes (promyelocytes, myelocytes and metamyelocytes) > 1% indicates that a LEFT SHIFT is Present. Performed By: #### L 501.9520, L100.0100, L500.4050, L502.0250, L500.4100 #### [facility] [address] [place], [address] Lymphocytes/100 WBC (Bld) 50.7 % High 19-41 [facility] Comment on above: Order Comment: Order Date: 02/15/24 Order Info: 0184-1 - CBCD Performed By: #### L 501.9520, L100.0100, L500.4050, L502.0250, L500.4100 #### [facility] [address] [place], [address] MCH (RBC) [Entitic mass] 28.0 pg Normal 27.0-32.0 [facility] Comment on above: Order Comment: Order Date: 02/15/24 Order Info: 0184-1 - CBCD Performed By: #### L 501.9520, L100.0100, L500.4050, L502.0250, L500.4100 #### [facility] [address] [place], [address] MCHC (RBC) [Mass/Vol] 30.8 g/dL Low 32-36 [facility] Comment on above: Order Comment: Order Date: 02/15/24 Order Info: 0184-1 - CBCD Performed By: #### L 501.9520, L100.0100, L500.4050, L502.0250, L500.4100 #### [facility] [address] [place], [address] MCV (RBC) [Entitic vol] 90.9 fL Normal 81-99 [facility] Comment on above: Order Comment: Order Date: 02/15/24 Order Info: 0184- - CBCD Performed By: #### L 501.9520, L100.0100, L500.4050, L502.0250, L500.4100 #### [facility] [address] [place], [address] Monocytes/100 WBC (Bld) 8.6 % Normal 0-10 [facility] Comment on above: Order Comment: Order Date: 02/15/24 Order Info: 0184-1 - CBCD Performed By: #### L 501.9520, L100.0100, L500.4050, L502.0250, L500.4100 #### [facility] [address] [place], [address] Neutrophils/100 WBC (Bld) 39.1 % Low 47-70 [facility] Comment on above: Order Comment: Order Date: 02/15/24 Order Info: 0184-1 - CBCD Performed By: #### L 501.9520, L100.0100, L500.4050, L502.0250, L500.4100 #### [facility] [address] [place], [address] Nucleated RBC (Bld) [#/Vol] 0 10*3/uL Normal 0-5 [facility] Comment on above: Order Comment: Order Date: 02/15/24 Order Info: 0184- - CBCD Performed By: #### L 501.9520, L100.0100, L500.4050, L502.0250, L500.4100 #### [facility] [address] [place], [address] Platelet mean volume (Bld) [Entitic vol] 10.9 fL Normal 6.2-12.0 [facility] Comment on above: Order Comment: Order Date: 02/15/24 Order Info: 0184-1 - CBCD Performed By: #### L 501.9520, L100.0100, L500.4050, L502.0250, L500.4100 #### [facility] [address] [place], [address] Platelets (Bld) [#/Vol] 201 10*3/uL Normal 150-450 [facility] Comment on above: Order Comment: Order Date: 02/15/24 Order Info: 0184-1 - CBCD Performed By: #### L 501.9520, L100.0100, L500.4050, L502.0250, L500.4100 #### [facility] [address] [place], [address] RBC (Bld) [#/Vol] 4.75 10*6/uL Normal 4.2-5.4 [facility] Comment on above: Order Comment: Order Date: 02/15/24 Order Info: 0184-1 - CBCD Performed By: #### L 501.9520, L100.0100, L500.4050, L502.0250, L500.4100 #### [facility] [address] [place], [address] RDW SD 42.9 fl Normal 35.1-43.9 [facility] Comment on above: Order Comment: Order Date: 02/15/24 Order Info: 0184-1 - CBCD Performed By: #### L 501.9520, L100.0100, L500.4050, L502.0250, L500.4100 #### [facility] [address] [place], [address] WBC (Bld) [#/Vol] 4.3 10*3/uL Low 4.4-11.0 [facility] Comment on above: Order Comment: Order Date: 02/15/24 Order Info: 0184-1 - CBCD Performed By: #### L 501.9520, L100.0100, L500.4050, L502.0250, L500.4100 #### [facility] [address] [place], [address] Comprehensive Metabolic Prof [facility] 05-05-2024 Albumin [Mass/Vol] 3.8 g/dL Normal 3.2-5.0 [facility] Comment on above: Order Comment: Order Date: 02/15/24 Order Info: [id number] - CMP Order Info: [id number] - LIPID Order Info: [id number] - TSH Performed By: #### L 501.9520, L100.0100, L500.4050, L502.0250, L500.4100 #### [facility] [address] [place], [address] Albumin/Globulin [Mass ratio] 0.9 {ratio} Normal 0.9-2.4 [facility] Comment on above: Order Comment: Order Date: 02/15/24 Order Info: [id number] - CMP Order Info: [id number] - LIPID Order Info: 3016 - TSH Performed By: #### L 501.9520, L100.0100, L500.4050, L502.0250, L500.4100 #### [facility] [address] [place], [address] ALK P 66 U/L Normal 45-117 [facility] Comment on above: Order Comment: Order Date: 02/15/24 Order Info: [id number] - CMP Order Info: [id number] - LIPID Order Info: [id number] - TSH Performed By: #### L 501.9520, L100.0100, L500.4050, L502.0250, L500.4100 #### [facility] [address] [place], [address] ALT [Catalytic activity/Vol] 46 U/L Normal 13-56 [facility] Comment on above: Order Comment: Order Date: 02/15/24 Order Info: [id number] - CMP Order Info: [id number] - LIPID Order Info: [id number] - TSH Performed By: #### L 501.9520, L100.0100, L500.4050, L502.0250, L500.4100 #### [facility] [address] [place], [address] AST [Catalytic activity/Vol] 26 U/L Normal 15-37 [facility] Comment on above: Order Comment: Order Date: 02/15/24 Order Info: [id number] - CMP Order Info: [id number] - LIPID Order Info: [id number] - TSH Performed By: #### L 501.9520, L100.0100, L500.4050, L502.0250, L500.4100 #### [facility] [address] [place], [address] Bilirubin [Mass/Vol] 0.30 mg/dL Normal 0.20-1.00 [facility] Comment on above: Order Comment: Order Date: 02/15/24 Order Info: [id number] - CMP Order Info: - LIPID Order Info: [id number] - TSH Result Comment: For patients on eltrombopag therapy, use of Dimension [place] TBIL is not recommended. Performed By: #### L 501.9520, L100.0100, L500.4050, L502.0250, L500.4100 #### [facility] [address] [place], [address] BUN/CRE 20.2 RATIO High 10-20 [facility] Comment on above: Order Comment: Order Date: 02/15/24 Order Info: [id number] - CMP Order Info: - LIPID Order Info: [id number] - TSH Performed By: #### L 501.9520, L100.0100, L500.4050, L502.0250, L500.4100 #### [facility] [address] [place], [address] CA,Total 8.9 mg/dL Normal 8.5-10.1 [facility] Comment on above: Order Comment: Order Date: 02/15/24 Order Info: [id number] - CMP Order Info: - LIPID Order Info: [id number] - TSH Performed By: #### L 501.9520, L100.0100, L500.4050, L502.0250, L500.4100 #### [facility] [address] [place], [address] Chloride [Moles/Vol] 110 mmol/L High 98-107 [facility] Comment on above: Order Comment: Order Date: 02/15/24 Order Info: [id number] - CMP Order Info: - LIPID Order Info: [id number] - TSH Performed By: #### L 501.9520, L100.0100, L500.4050, L502.0250, L500.4100 #### [facility] [address] [place], [address] CO2 [Moles/Vol] 24.0 mmol/L Normal 21.0-32.0 [facility] Comment on above: Order Comment: Order Date: 02/15/24 Order Info: [id number] - CMP Order Info: - LIPID Order Info: [id number] - TSH Performed By: #### L 501.9520, L100.0100, L500.4050, L502.0250, L500.4100 #### [facility] [address] [place], [address] Creatinine [Mass/Vol] 0.79 mg/dL Normal 0.55-1.02 [facility] Comment on above: Order Comment: Order Date: 02/15/24 Order Info: [id number] - CMP Order Info: - LIPID Order Info: [id number] - TSH Result Comment: The validity of the calculated GFR GFRAA in patients over 70 years has not been determined. Clinical correlation is essential. Performed By: #### L 501.9520, L100.0100, L500.4050, L502.0250, L500.4100 #### [facility] [address] [place], [place], [address] EST GFR - AA 96 mL/min Normal >60 [facility] Comment on above: Order Comment: Order Date: 02/15/24 Order Info: [id number] - CMP Order Info: - LIPID Order Info: [id number] - TSH Result Comment: Afri can [facility] GFR Calc Performed By: #### L 501.9520, L100.0100, L500.4050, L502.0250, L500.4100 #### [facility] [address] [place], [place], [address] GAP 5 Normal 5-15 [facility] Comment on above: Order Comment: Order Date: 02/15/24 Order Info: [id number] - CMP Order Info: - LIPID Order Info: [id number] - TSH Performed By: #### L 501.9520, L100.0100, L500.4050, L502.0250, L500.4100 #### [facility] [address] [place], [address] GFR/1.73 sq M.predicted among non-blacks MDRD (S/P/Bld) [Vol rate/Area] 79 mL/min/{1.73_m2} Normal >60 [facility] Comment on above: Order Comment: Order Date: 02/15/24 Order Info: 0786- - CMP Order Info: [id number] - LIPID Order Info: [id number] - TSH Result Comment: Non- GFR Calc Performed By: #### L 501.9520, L100.0100, L500.4050, L502.0250, L500.4100 #### [facility] [address] [place], [address] Globulin (S) [Mass/Vol] 4.2 g/dL Normal 2.2-4.2 [facility] Comment on above: Order Comment: Order Date: 02/15/24 Order Info: 0786- - CMP Order Info: [id number] - LIPID Order Info: 3 - TSH Performed By: #### L 501.9520, L100.0100, L500.4050, L502.0250, L500.4100 #### [facility] [address] [place], [address] Glucose [Mass/Vol] 94 mg/dL Normal 74-106 [facility] Comment on above: Order Comment: Order Date: 02/15/24 Order Info: 0786- - CMP Order Info: [id number] - LIPID Order Info: 301-3 - TSH Performed By: #### L 501.9520, L100.0100, L500.4050, L502.0250, L500.4100 #### [facility] [address] [place], [address] Potassium [Moles/Vol] 3.8 mmol/L Normal 3.5-5.1 [facility] Comment on above: Order Comment: Order Date: 02/15/24 Order Info: 07 - CMP Order Info: - LIPID Order Info: [id number] - TSH Performed By: #### L 501.9520, L100.0100, L500.4050, L502.0250, L500.4100 #### [facility] [address] [place], [address] Sodium [Moles/Vol] 139 mmol/L Normal 136-145 [facility] Comment on above: Order Comment: Order Date: 02/15/24 Order Info: [id number] - CMP Order Info: [id number] - LIPID Order Info: [id number] - TSH Performed By: #### L 501.9520, L100.0100, L500.4050, L502.0250, L500.4100 #### [facility] [address] [place], [place], [address] T PROT 8.0 g/dL Normal 6.4-8.2 [facility] Comment on above: Order Comment: Order Date: 02/15/24 Order Info: 07 - CMP Order Info: - LIPID Order Info: [id number] - TSH Performed By: #### L 501.9520, L100.0100, L500.4050, L502.0250, L500.4100 #### [facility] [address] [place], [address] Urea nitrogen [Mass/Vol] 16 mg/dL Normal 7-18 [facility] Comment on above: Order Comment: Order Date: 02/15/24 Order Info: 0786 - CMP Order Info: [id number] - LIPID Order Info: [id number] - TSH Performed By: #### L 501.9520, L100.0100, L500.4050, L502.0250, L500.4100 #### [facility] [address] [place], [address] Lipid Profileon 05-05-2024 Cholesterol [Mass/Vol] 194 mg/dL Normal 200 [facility] Comment on above: Order Comment: Order Date: 02/15/24 Order Info: 0786- - CMP Order Info: [id number] - LIPID Order Info: 301-3 - TSH Result Comment: <200 mg/dL Desirable 200-240 mg/dL Borderline >240 mg/dL High Risk Performed By: #### L 501.9520, L100.0100, L500.4050, L502.0250, L500.4100 #### [facility] [address] [place], [address] Cholesterol in HDL [Mass/Vol] 45 mg/dL Normal [facility] Comment on above: Order Comment: Order Date: 02/15/24 Order Info: 07 - CMP Order Info: [id number] - LIPID Order Info: [id number] - TSH Result Comment: The drugs N-Acetylcysteine and Metamizole may falsely depress this assay. Reference Range HDL <40 mg/dL Low HDL Cholesterol HDL >or= 60 mg/dL High HDL Cholesterol Performed By: #### L 501.9520, L100.0100, L500.4050, L502.0250, L500.4100 #### [facility] [address] [place], [address] Cholesterol in LDL [Mass/Vol] 111 mg/dL Normal 0-130 [facility] Comment on above: Order Comment: Order Date: 02/15/24 Order Info: 0786 - CMP Order Info: [id number] - LIPID Order Info: [id number] - TSH Performed By: #### L 501.9520, L100.0100, L500.4050, L502.0250, L500.4100 #### [facility] [address] [place], [address] Cholesterol in VLDL [Mass/Vol] 38 mg/dL Normal 5-40 [facility] Comment on above: Order Comment: Order Date: 02/15/24 Order Info: 0786 - CMP Order Info: [id number] - LIPID Order Info: [id number] - TSH Performed By: #### L 501.9520, L100.0100, L500.4050, L502.0250, L500.4100 #### [facility] [address] [place], [address] Triglyceride [Mass/Vol] 189 mg/dL Normal [facility] Comment on above: Order Comment: Order Date: 02/15/24 Order Info: 0786-1 - CMP Order Info: [id number] - LIPID Order Info: [id number] - TSH Result Comment: The drugs N-Acetylcysteine and Metamizole may falsely depress this assay. Serum Triglycerides Reference Interval Normal <150 mg/dL Borderline high 150 - 199 mg/dL High 200 - 499 mg/dL Very High > or = 500 mg/dL Performed By: #### L 501.9520, L100.0100, L500.4050, L502.0250, L500.4100 #### [facility] [address] [place], [place], [id number] Microalb:Creat Ratio,Random URon 05-05-2024 Creatinine [Mass/Vol] 146.00 mg/dL Normal NO RANGE EST . [facility] Comment on above: Order Comment: Order Date: 02/15/24 Order Info: [id number] - MIACRE Performed By: #### L 501.9520, L100.0100, L500.4050, L502.0250, L500.4100 #### [facility] [address] [place], [address] MALB:CRE 16.0 mg/g CRE Normal <30 mg/g CRE [facility] Comment on above: Order Comment: Order Date: 02/15/24 Order Info: [id number] - MIACRE Performed By: #### L 501.9520, L100.0100, L500.4050, L502.0250, L500.4100 #### [facility] [address] [place], [place], [address] MICROALBUMIN,UR 23.4 mg/L Normal NO RANGE EST. [facility] Comment on above: Order Comment: Order Date: 02/15/24 Order Info: [id number] - MIACRE Performed By: #### L 501.9520, L100.0100, L500.4050, L502.0250, L500.4100 #### [facility] [address] [place], [place], [id number] Thyroid Stim Hormone (TSH)on 05-05-2024 TSH 2.11 uIU/mL Normal 0.358-3.74 [facility] Comment on above: Order Comment: Order Date: 02/15/24 Order Info: 0786-1 - CMP Order Info: [id number] - LIPID Order Info: [id number] - TSH Performed By: #### L 501.9520, L100.0100, L500.4050, L502.0250, L500.4100 #### [facility] [address] [place], [place], [id number] Absolute lymphocyte countOrd ered By: Sterling Melchor on 11-15-2023 Lymphocytes Auto (Unsp spec) [#/Vol] 2.56 10*3/uL 0.83-4.51 [facility] Automated lymphocyte count a s percentage of total leukocytesOrdered By: Sterling Melchor on 11-15-2023 Lymphocytes/100 WBC Auto (Unsp spec) 50.6 % 19-41 [facility] Basophil percentageOrdered B y: Sterling Melchor on 11-15-2023 Basophils/100 WBC (Bld) 0.4 % 0-1 [facility] Bilirubin [Mass/Vol] 0.40 mg/dL 0.20-1.00 [facility] Comment on above: For patients on eltr ombopag therapy, use of Dimension [place] TBIL is not recommended. Chloride [Moles/Vol] 110 mmol/L 98-107 [facility] Cholesterol [Mass/Vol] 215 mg/dL <200 [facility] Comment on above: <200 mg/dL Desirable 200-240 mg/dL Borderline >240 mg/dL High Risk Eosinophils/100 WBC (Bld) 1.0 % 0-5 [facility] Glucose [Mass/Vol] 122 mg/dL 74-106 [facility] Comment on above: Fasting Glucose resu lt from 100 to 125 mg/dL suggests IMPAIRED HOMEOSTASIS per A.D.A. criteria. Hemoglobin (Bld) [Mass/Vol] 13.6 g/dL 12.0-15.0 [facility] Monocytes/100 WBC (Bld) 7.9 % 0-10 [facility] Neutrophils (Bld) [#/Vol] 2.0 10*3/uL 2.0-7.7 [facility] Neutrophils/100 WBC (Bld) 40.1 % 47-70 [facility] Potassium [Moles/Vol] 3.6 mmol/L 3.5-5.1 [facility] Protein [Mass/Vol] 8.0 g/dL 6.4-8.2 [facility] Sodium [Moles/Vol] 140 mmol/L 136-145 [facility] Triglyceride [Mass/Vol] 219 mg/dL <199 [facility] Comment on above: The drugs N-Acetylcy steine and Metamizole may falsely depress this assay.Serum Triglycerides Reference Interval Normal <150 mg/dL Borderline high 150 - 199 mg/dL High 200 - 499 mg/dL Very High > or = 500 mg/dL WBC (Bld) [#/Vol] 5.1 10*3/uL 4.4-11.0 [facility] CBC W/Diff, Automatedon 10-26 Absolute Lymph 2.56 X10 3/uL Normal 0.83-4.51 [facility] Comment on above: Order Comment: Order Date: 11/15/23 Order Info: 0184-1 - CBCD Performed By: #### L 100.0100, L502.0250, L501.5100, L500.4050, L506.0400, L501.9520 #### [facility] [address] [place], [place], [address] Absolute Neut 2.0 X10 3/uL Normal 2.0-7.7 [facility] Comment on above: Order Comment: Order Date: 11/15/23 Order Info: 0184-1 - CBCD Performed By: #### L 100.0100, L502.0250, L501.5100, L500.4050, L506.0400, L501.9520 #### [facility] [address] [place], [address] Basophils/100 WBC (Bld) 0.4 % Normal 0-1 [facility] Comment on above: Order Comment: Order Date: 11/15/23 Order Info: 0184-1 - CBCD Performed By: #### L 100.0100, L502.0250, L501.5100, L500.4050, L506.0400, L501.9520 #### [facility] [address] [place], [address] Eosinophils/100 WBC (Bld) 1.0 % Normal 0-5 [facility] Comment on above: Order Comment: Order Date: 11/15/23 Order Info: 018- - CBCD Performed By: #### L 100.0100, L502.0250, L501.5100, L500.4050, L506.0400, L501.9520 #### [facility] [address] [place], [address] Erythrocyte distribution width (RBC) [Ratio] 12.2 % Normal 11.6-14.6 [facility] Comment on above: Order Comment: Order Date: 11/15/23 Order Info: 0184-1 - CBCD Performed By: #### L 100.0100, L502.0250, L501.5100, L500.4050, L506.0400, L501.9520 #### [facility] [address] [place], [address] Hematocrit (Bld) [Volume fraction] 43.2 % Normal 37-47 [facility] Comment on above: Order Comment: Order Date: 11/15/23 Order Info: 0184-1 - CBCD Performed By: #### L 100.0100, L502.0250, L501.5100, L500.4050, L506.0400, L501.9520 #### [facility] [address] [place], [address] Hemoglobin (Bld) [Mass/Vol] 13.6 g/dL Normal 12.0-15.0 [facility] Comment on above: Order Comment: Order Date: 11/15/23 Order Info: 0184-1 - CBCD Performed By: #### L 100.0100, L502.0250, L501.5100, L500.4050, L506.0400, L501.9520 #### [facility] [address] [place], [address] IG% 0.000 Normal 0.0-0.9 [facility] Comment on above: Order Comment: Order Date: 11/15/23 Order Info: 0184-1 - CBCD Result Comment: IG% - Immature Granulocytes (promyelocytes, myelocytes and metamyelocytes) > 1% indicates that a LEFT SHIFT is Present. Performed By: #### L 100.0100, L502.0250, L501.5100, L500.4050, L506.0400, L501.9520 #### [facility] [address] [place], [address] Lymphocytes/100 WBC (Bld) 50.6 % High 19-41 [facility] Comment on above: Order Comment: Order Date: 11/15/23 Order Info: 0184-1 - CBCD Performed By: #### L 100.0100, L502.0250, L501.5100, L500.4050, L506.0400, L501.9520 #### [facility] [address] [place], [address] MCH (RBC) [Entitic mass] 28.0 pg Normal 27.0-32.0 [facility] Comment on above: Order Comment: Order Date: 11/15/23 Order Info: 0184- - CBCD Performed By: #### L 100.0100, L502.0250, L501.5100, L500.4050, L506.0400, L501.9520 #### [facility] [address] [place], [address] MCHC (RBC) [Mass/Vol] 31.5 g/dL Low 32-36 [facility] Comment on above: Order Comment: Order Date: 11/15/23 Order Info: 018- - CBCD Performed By: #### L 100.0100, L502.0250, L501.5100, L500.4050, L506.0400, L501.9520 #### [facility] [address] [place], [address] MCV (RBC) [Entitic vol] 89.1 fL Normal 81-99 [facility] Comment on above: Order Comment: Order Date: 11/15/23 Order Info: 018- - CBCD Performed By: #### L 100.0100, L502.0250, L501.5100, L500.4050, L506.0400, L501.9520 #### [facility] [address] [place], [address] Monocytes/100 WBC (Bld) 7.9 % Normal 0-10 [facility] Comment on above: Order Comment: Order Date: 11/15/23 Order Info: 018- - CBCD Performed By: #### L 100.0100, L502.0250, L501.5100, L500.4050, L506.0400, L501.9520 #### [facility] [address] [place], [address] Neutrophils/100 WBC (Bld) 40.1 % Low 47-70 [facility] Comment on above: Order Comment: Order Date: 11/15/23 Order Info: 0184- - CBCD Performed By: #### L 100.0100, L502.0250, L501.5100, L500.4050, L506.0400, L501.9520 #### [facility] [address] [place], [address] Nucleated RBC (Bld) [#/Vol] 0 10*3/uL Normal 0-5 [facility] Comment on above: Order Comment: Order Date: 11/15/23 Order Info: 0184-1 - CBCD Performed By: #### L 100.0100, L502.0250, L501.5100, L500.4050, L506.0400, L501.9520 #### [facility] [address] [place], [address] Platelet mean volume (Bld) [Entitic vol] 10.2 fL Normal 6.2-12.0 [facility] Comment on above: Order Comment: Order Date: 11/15/23 Order Info: 0184- - CBCD Performed By: #### L 100.0100, L502.0250, L501.5100, L500.4050, L506.0400, L501.9520 #### [facility] [address] [place], [address] Platelets (Bld) [#/Vol] 224 10*3/uL Normal 150-450 [facility] Comment on above: Order Comment: Order Date: 11/15/23 Order Info: 0184-1 - CBCD Performed By: #### L 100.0100, L502.0250, L501.5100, L500.4050, L506.0400, L501.9520 #### [facility] [address] [place], [address] RBC (Bld) [#/Vol] 4.85 10*6/uL Normal 4.2-5.4 [facility] Comment on above: Order Comment: Order Date: 11/15/23 Order Info: 0184-1 - CBCD Performed By: #### L 100.0100, L502.0250, L501.5100, L500.4050, L506.0400, L501.9520 #### [facility] [address] [place], [address] RDW SD 39.8 fl Normal 35.1-43.9 [facility] Comment on above: Order Comment: Order Date: 11/15/23 Order Info: 0184-1 - CBCD Performed By: #### L 100.0100, L502.0250, L501.5100, L500.4050, L506.0400, L501.9520 #### [facility] [address] [place], [address] WBC (Bld) [#/Vol] 5.1 10*3/uL Normal 4.4-11.0 [facility] Comment on above: Order Comment: Order Date: 11/15/23 Order Info: 0184- - CBCD Performed By: #### L 100.0100, L502.0250, L501.5100, L500.4050, L506.0400, L501.9520 #### [facility] [address] [place], [address] Comprehensive Metabolic Prof ilon 11-15-2023 Albumin [Mass/Vol] 3.9 g/dL Normal 3.2-5.0 [facility] Comment on above: Order Comment: Order Date: 11/15/23 Order Info: 0786-1 - CMP Order Info: [id number] - LIPID Order Info: 2324-2 - GGTP Order Info: 3016-3 - TSH Order Info: 3024-7 - T4F Performed By: #### L 100.0100, L502.0250, L501.5100, L500.4050, L506.0400, L501.9520 #### [facility] [address] [place], [address] Albumin/Globulin [Mass ratio] 1.0 {ratio} Normal 0.9-2.4 [facility] Comment on above: Order Comment: Order Date: 11/15/23 Order Info: 86-1 - CMP Order Info: [id number] - LIPID Order Info: 232-2 - GGTP Order Info: 3015-11 - TSH Order Info: 7 - T4F Performed By: #### L 100.0100, L502.0250, L501.5100, L500.4050, L506.0400, L501.9520 #### [facility] [address] [place], [address] ALK P 69 U/L Normal 45-117 [facility] Comment on above: Order Comment: Order Date: 11/15/23 Order Info: 785-1 - CMP Order Info: [id number] - LIPID Order Info: 232-2 - GGTP Order Info: 3015-11 - TSH Order Info: 3024-03 - T4F Performed By: #### L 100.0100, L502.0250, L501.5100, L500.4050, L506.0400, L501.9520 #### [facility] [address] [place], [address] ALT [Catalytic activity/Vol] 37 U/L Normal 13-56 [facility] Comment on above: Order Comment: Order Date: 11/15/23 Order Info: 785-1 - CMP Order Info: [id number] - LIPID Order Info: 232-2 - GGTP Order Info: 3015-11 - TSH Order Info: 7 - T4F Performed By: #### L 100.0100, L502.0250, L501.5100, L500.4050, L506.0400, L501.9520 #### [facility] [address] [place], [address] AST [Catalytic activity/Vol] 23 U/L Normal 15-37 [facility] Comment on above: Order Comment: Order Date: 11/15/23 Order Info: 86-1 - CMP Order Info: [id number] - LIPID Order Info: 2324-2 - GGTP Order Info: 3015-11 - TSH Order Info: 7 - T4F Performed By: #### L 100.0100, L502.0250, L501.5100, L500.4050, L506.0400, L501.9520 #### [facility] [address] [place], [address] Bilirubin [Mass/Vol] 0.40 mg/dL Normal 0.20-1.00 [facility] Comment on above: Order Comment: Order Date: 11/15/23 Order Info: 785-1 - CMP Order Info: - LIPID Order Info: 232-2 - GGTP Order Info: 3 - TSH Order Info: 3027 - T4F Result Comment: For patients on eltrombopag therapy, use of Dimension [place] TBIL is not recommended. Performed By: #### L 100.0100, L502.0250, L501.5100, L500.4050, L506.0400, L501.9520 #### [facility] [address] [place], [address] BUN/CRE 29.9 RATIO High 10-20 [facility] Comment on above: Order Comment: Order Date: 11/15/23 Order Info: 785- - CMP Order Info: [id number] - LIPID Order Info: 232-2 - GGTP Order Info: 3015-11 - TSH Order Info: 3023-7 - T4F Performed By: #### L 100.0100, L502.0250, L501.5100, L500.4050, L506.0400, L501.9520 #### [facility] [address] [place], [address] CA,Total 9.0 mg/dL Normal 8.5-10.1 [facility] Comment on above: Order Comment: Order Date: 11/15/23 Order Info: 07-1 - CMP Order Info: [id number] - LIPID Order Info: 2324-2 - GGTP Order Info: 3 - TSH Order Info: 3027 - T4F Performed By: #### L 100.0100, L502.0250, L501.5100, L500.4050, L506.0400, L501.9520 #### [facility] [address] [place], [address] Chloride [Moles/Vol] 110 mmol/L High 98-107 [facility] Comment on above: Order Comment: Order Date: 11/15/23 Order Info: 785- - CMP Order Info: - LIPID Order Info: 2 - GGTP Order Info: 3015-11 - TSH Order Info: 3024-03 - T4F Performed By: #### L 100.0100, L502.0250, L501.5100, L500.4050, L506.0400, L501.9520 #### [facility] [address] [place], [address] CO2 [Moles/Vol] 24.0 mmol/L Normal 21.0-32.0 [facility] Comment on above: Order Comment: Order Date: 11/15/23 Order Info: 785-09 - CMP Order Info: - LIPID Order Info: 2 - GGTP Order Info: 3015-11 - TSH Order Info: 3024-03 - T4F Performed By: #### L 100.0100, L502.0250, L501.5100, L500.4050, L506.0400, L501.9520 #### [facility] [address] [place], [address] Creatinine [Mass/Vol] 0.70 mg/dL Normal 0.55-1.02 [facility] Comment on above: Order Comment: Order Date: 11/15/23 Order Info: 785-09 - CMP Order Info: - LIPID Order Info: 232-2 - GGTP Order Info: 3015-11 - TSH Order Info: 7 - T4F Result Comment: The validity of the calculated GFR GFRAA in patients over 70 years has not been determined. Clinical correlation is essential. Performed By: #### L 100.0100, L502.0250, L501.5100, L500.4050, L506.0400, L501.9520 #### [facility] [address] [place], [place], [address] EST GFR - AA 110 mL/min Normal >60 [facility] Comment on above: Order Comment: Order Date: 11/15/23 Order Info: 86-1 - CMP Order Info: [id number] - LIPID Order Info: 232-2 - GGTP Order Info: 3 - TSH Order Info: 3024-03 - T4F Result Comment: Afri can [facility] GFR Calc Performed By: #### L 100.0100, L502.0250, L501.5100, L500.4050, L506.0400, L501.9520 #### [facility] [address] [place], [place], [id number] [phone] Normal 5-15 [facility] Comment on above: Order Comment: Order Date: 11/15/23 Order Info: 785- - CMP Order Info: - LIPID Order Info: 232-2 - GGTP Order Info: 3 - TSH Order Info: 3024-03 - T4F Performed By: #### L 100.0100, L502.0250, L501.5100, L500.4050, L506.0400, L501.9520 #### [facility] [address] [place], [place], [address] GFR/1.73 sq M.predicted among non-blacks MDRD (S/P/Bld) [Vol rate/Area] 91 mL/min/{1.73_m2} Normal >60 [facility] Comment on above: Order Comment: Order Date: 11/15/23 Order Info: 86-1 - CMP Order Info: [id number] - LIPID Order Info: 2324-2 - GGTP Order Info: 3 - TSH Order Info: 3027 - T4F Result Comment: Non- GFR Calc Performed By: #### L 100.0100, L502.0250, L501.5100, L500.4050, L506.0400, L501.9520 #### [facility] [address] [place], [address] Globulin (S) [Mass/Vol] 4.1 g/dL Normal 2.2-4.2 [facility] Comment on above: Order Comment: Order Date: 11/15/23 Order Info: 86-1 - CMP Order Info: [id number] - LIPID Order Info: 232-2 - GGTP Order Info: 3015-11 - TSH Order Info: 3024-03 - T4F Performed By: #### L 100.0100, L502.0250, L501.5100, L500.4050, L506.0400, L501.9520 #### [facility] [address] [place], [address] Glucose [Mass/Vol] 122 mg/dL High 74-106 [facility] Comment on above: Order Comment: Order Date: 11/15/23 Order Info: 785- - CMP Order Info: - LIPID Order Info: 232-2 - GGTP Order Info: 3015-11 - TSH Order Info: 3024-03 - T4F Result Comment: Fast ing Glucose result from 100 to 125 mg/dL suggests IMPAIRED HOMEOSTASIS per A.D.A. criteria. Performed By: #### L 100.0100, L502.0250, L501.5100, L500.4050, L506.0400, L501.9520 #### [facility] [address] [place], [address] Potassium [Moles/Vol] 3.6 mmol/L Normal 3.5-5.1 [facility] Comment on above: Order Comment: Order Date: 11/15/23 Order Info: 785-1 - CMP Order Info: [id number] - LIPID Order Info: 2324-2 - GGTP Order Info: 3015-11 - TSH Order Info: 3024-7 - T4F Performed By: #### L 100.0100, L502.0250, L501.5100, L500.4050, L506.0400, L501.9520 #### [facility] [address] [place], [address] Sodium [Moles/Vol] 140 mmol/L Normal 136-145 [facility] Comment on above: Order Comment: Order Date: 11/15/23 Order Info: 785- - CMP Order Info: - LIPID Order Info: 2324-2 - GGTP Order Info: 3 - TSH Order Info: 7 - T4F Performed By: #### L 100.0100, L502.0250, L501.5100, L500.4050, L506.0400, L501.9520 #### [facility] [address] [place], [place], [address] T PROT 8.0 g/dL Normal 6.4-8.2 [facility] Comment on above: Order Comment: Order Date: 11/15/23 Order Info: 785-09 - CMP Order Info: - LIPID Order Info: 2324-2 - GGTP Order Info: 3 - TSH Order Info: 7 - T4F Performed By: #### L 100.0100, L502.0250, L501.5100, L500.4050, L506.0400, L501.9520 #### [facility] [address] [place], [address] Urea nitrogen [Mass/Vol] 21 mg/dL High 7-18 [facility] Comment on above: Order Comment: Order Date: 11/15/23 Order Info: 785- - CMP Order Info: [id number] - LIPID Order Info: 2324-2 - GGTP Order Info: [id number] - TSH Order Info: 3024-7 - T4F Performed By: #### L 100.0100, L502.0250, L501.5100, L500.4050, L506.0400, L501.9520 #### [facility] [address] [place], [place], [id number] Determination of erythrocyte mean corpuscular volume (MCV)Ordered By: Sterling Melchor on 11-15-2023 MCV (RBC) [Entitic vol] 89.1 fL 81-99 [facility] Erythrocyte distribution wid th ratioOrdered By: Sterling Melchor on 11-15-2023 Erythrocyte distribution width (RBC) [Ratio] 12.2 % 11.6-14.6 [facility] Erythrocyte distribution wid th standard deviationOrdered By: Sterling Melchor on 11-15-2023 Erythrocyte distribution width (RBC) [Entitic vol] 39.8 fL 35.1-43.9 [facility] GGTPon 11-15-2023 GGTP 34 U/L Normal 5-55 [facility] Comment on above: Order Comment: Order Date: 11/15/23 Order Info: 0786-1 - CMP Order Info: [id number] - LIPID Order Info: 2324-2 - GGTP Order Info: 3016-3 - TSH Order Info: 3024-7 - T4F Performed By: #### L 100.0100, L502.0250, L501.5100, L500.4050, L506.0400, L501.9520 #### [facility] [address] [place], [place], [id number] Hematocrit Auto (Bld) [Volum e fraction]Ordered By: Sterling Melchor on 11-15-2023 Hematocrit (Bld) [Volume fraction] 43.2 % 37-47 [facility] Immature granulocytes/100 WB C Auto (Bld)Ordered By: Sterling Melchor on 11-15-2023 Immature granulocytes/100 WBC (Bld) 0.000 % 0.0-0.9 [facility] Comment on above: IG% - Immature Granu locytes (promyelocytes, myelocytes and metamyelocytes) > 1% indicates that a LEFT SHIFT is Present. Laboratory - Chemistry and C hemistry - challengeOrdered By: Sterling Melchor on 11-15-2023 Albumin/Globulin [Mass ratio] 1.0 {ratio} 0.9-2.4 [facility] ALP [Catalytic activity/Vol] 69 U/L 45-117 [facility] ALT [Catalytic activity/Vol] 37 U/L 13-56 [facility] Amylase [Catalytic activity/Vol] 34 U/L 5-55 [facility] Cholesterol in HDL [Mass/Vol] 49 mg/dL >40 [facility] Comment on above: The drugs N-Acetylcy steine and Metamizole may falsely depress this assay. Reference Range HDL <40 mg/dL Low HDL Cholesterol HDL >or= 60 mg/dL High HDL Cholesterol Cholesterol in LDL [Mass/Vol] 122 mg/dL 0-130 [facility] CO2 [Moles/Vol] 24.0 mmol/L 21.0-32.0 [facility] Globulin (S) [Mass/Vol] 4.1 g/dL 2.2-4.2 [facility] Urea nitrogen/Creatinine [Mass ratio] 29.9 mg/mg 10-20 [facility] Laboratory - Hematology and Cell countsOrdered By: Sterling Melchor on 11-15-2023 MCH (RBC) [Entitic mass] 28.0 pg 27.0-32.0 [facility] MCHC (RBC) [Mass/Vol] 31.5 g/dL 32-36 [facility] Nucleated RBC/100 WBC (Bld) [Ratio] 0 % 0-5 [facility] Platelet mean volume (Bld) [Entitic vol] 10.2 fL 6.2-12.0 [facility] Platelets (Bld) [#/Vol] 224 10*3/uL 150-450 [facility] Lipid Profileon 11-15-2023 Cholesterol [Mass/Vol] 215 mg/dL High 200 [facility] Comment on above: Order Comment: Order Date: 11/15/23 Order Info: 0786-1 - CMP Order Info: [id number] - LIPID Order Info: 2324-2 - GGTP Order Info: 3016-3 - TSH Order Info: 3024-7 - T4F Result Comment: <200 mg/dL Desirable 200-240 mg/dL Borderline >240 mg/dL High Risk Performed By: #### L 500.2745 #### [facility] [address] [place], [place], [address] Cholesterol in HDL [Mass/Vol] 49 mg/dL Normal [facility] Comment on above: Order Comment: Order Date: 11/15/23 Order Info: 0786-1 - CMP Order Info: [id number] - LIPID Order Info: 2324-2 - GGTP Order Info: 3016-3 - TSH Order Info: 302-7 - T4F Result Comment: The drugs N-Acetylcysteine and Metamizole may falsely depress this assay. Reference Range HDL <40 mg/dL Low HDL Cholesterol HDL >or= 60 mg/dL High HDL Cholesterol Performed By: #### L 500.4100 #### [facility] [address] [place], [place], [address] ([phone]) Cholesterol in LDL [Mass/Vol] 122 mg/dL Normal 0-130 [facility] Comment on above: Order Comment: Order Date: 11/15/23 Order Info: 785-1 - CMP Order Info: [id number] - LIPID Order Info: 2324-2 - GGTP Order Info: 3 - TSH Order Info: 7 - T4F Performed By: #### L 500.4100 #### [facility] [address] [place], [address] Cholesterol in VLDL [Mass/Vol] 44 mg/dL High 5-40 [facility] Comment on above: Order Comment: Order Date: 11/15/23 Order Info: 0786-1 - CMP Order Info: [id number] - LIPID Order Info: 2324-2 - GGTP Order Info: [id number] - TSH Order Info: 30247 - T4F Performed By: #### L 500.4100 #### [facility] [address] [place], [address] Triglyceride [Mass/Vol] 219 mg/dL High [facility] Comment on above: Order Comment: Order Date: 11/15/23 Order Info: 0786-1 - CMP Order Info: [id number] - LIPID Order Info: 2324-2 - GGTP Order Info: 3016-3 - TSH Order Info: 3024-7 - T4F Result Comment: The drugs N-Acetylcysteine and Metamizole may falsely depress this assay. Serum Triglycerides Reference Interval Normal <150 mg/dL Borderline high 150 - 199 mg/dL High 200 - 499 mg/dL Very High > or = 500 mg/dL Performed By: #### L 500.4100 #### [facility] [address] [place], [place], [id number] Microalb:Creat Ratio,Random URon 11-15-2023 Creatinine [Mass/Vol] 60.90 mg/dL Normal NO RANGE EST. [facility] Comment on above: Order Comment: Order Date: 11/15/23 Order Info: 0779-1 - MIACRE Performed By: #### L 100.0100, L502.0250, L501.5100, L500.4050, L506.0400, L501.9520 #### [facility] [address] [place] [address], [address] MALB:CRE 10.9 mg/g CRE Normal <30 mg/g CRE [facility] Comment on above: Order Comment: Order Date: 11/15/23 Order Info: [id number] - MIACRE Performed By: #### L 100.0100, L502.0250, L501.5100, L500.4050, L506.0400, L501.9520 #### [facility] [address] [place], [address] MICROALBUMIN,UR 6.6 mg/L Normal NO RANGE EST. [facility] Comment on above: Order Comment: Order Date: 11/15/23 Order Info: [id number] - MIACRE Performed By: #### L 100.0100, L502.0250, L501.5100, L500.4050, L506.0400, L501.9520 #### [facility] [address] [place], [address] No Panel InformationOrdered By: Sterling Melchor on 11-15-2023 Estimated GFR (MDRD) Amer 110 mL/min >60 [facility] Comment on above: GFR Calc Estimated GFR (MDRD) Non-Af Amer 91 mL/min >60 [facility] Comment on above: Non- GFR Calc Urine Microalbumin/Creatinine Ratio 10.9 mg/g CRE <30 [facility] VLDL Cholesterol 44 mg/dL 5-40 [facility] RBC Auto (Bld) [#/Vol]Ordere d By: Sterling Melchor on 11-15-2023 RBC (Bld) [#/Vol] 4.85 10*6/uL 4.2-5.4 [facility] Serum or plasma calcium baldo urement (mass/volume)Ordered By: Sterling Melchor on 11-15-2023 Calcium [Mass/Vol] 9.0 mg/dL 8.5-10.1 [facility] Serum or plasma creatinine m easurement (mass/volume)Ordered By: Sterling Melchor on 11-15-2023 Creatinine [Mass/Vol] 0.70 mg/dL 0.55-1.02 [facility] Comment on above: The validity of the calculated GFR & GFRAA in patients over 70 years has not been determined. Clinical correlation is essential. Serum or plasma thyroid stim ulating hormone (TSH) measurement (units/volume)Ordered By: Sterling Melchor on 11-15-2023 TSH Qn 1.79 uIU/mL 0.358-3.74 [facility] Serum or plasma urea nitroge n measurement (mass/volume)Ordered By: Sterling Melchor on 11-15-2023 Urea nitrogen [Mass/Vol] 21 mg/dL 7-18 [facility] T4 Free Directon 11-15-2023 T4 FREE DIRECT 1.07 ng/dL Normal 0.76-1.46 [facility] Comment on above: Order Comment: Order Date: 02/15/24 Order Info: [id number] - CMP Order Info: [id number] - LIPID Order Info: [id number] - TSH Performed By: #### L 501.9520, L100.0100, L500.4050, L502.0250, L500.4100 #### [facility] [place], [address] Thin prep Papanicolaou smear with manual screeningOrdered By: Sterling Melchor on 11-15-2023 Thin prep Papanicolaou smear with manual screening 3.9 g/dL 3.2-5.0 [facility] Thin prep Papanicolaou smear with manual screening 23 U/L 15-37 [facility] Thin prep Papanicolaou smear with manual screening 6 5-15 [facility] Thin prep Papanicolaou smear with manual screening 6.6 mg/L NO RANGE EST. [facility] Thin prep Papanicolaou smear with manual screening 1.07 ng/dL 0.76-1.46 [facility] Thyroid Stim Hormone (TSH)on 11-15-2023 TSH 1.79 uIU/mL Normal 0.358-3.74 [facility] Comment on above: Order Comment: Order Date: 02/15/24 Order Info: [id number] - CMP Order Info: [id number] - LIPID Order Info: [id number] - TSH Performed By: #### L 501.9520, L100.0100, L500.4050, L502.0250, L500.4100 #### [facility] [address] [place] [address], [address] Urine creatinine measurement (mass/volume)Ordered By: Sterling Melchor on 11-15-2023 Creatinine (U) [Mass/Vol] 60.90 mg/dL NO RANGE EST. [facility] No Panel InformationOrdered By: Sterling Melchor on 03-26-2023 Urine Microalbumin/Creatinine Ratio 13.3 mg/g CRE <30 [facility] Thin prep Papanicolaou smear with manual screeningOrdered By: Sterling Melchor on 03-26-2023 Thin prep Papanicolaou smear with manual screening 5.7 mg/L NO RANGE EST. [facility] Urine creatinine measurement (mass/volume)Ordered By: Sterling Melchor on 03-26-2023 Creatinine (U) [Mass/Vol] 42.40 mg/dL NO RANGE EST. [facility] Basophil percentageOrdered B y: Dr. Melchor on 03-09-2023 Bilirubin [Mass/Vol] 0.40 mg/dL 0.20-1.00 [facility] Comment on above: For patients on eltr ombopag therapy, use of Dimension [place] TBIL is not recommended. Chloride [Moles/Vol] 107 mmol/L 98-107 [facility] Glucose [Mass/Vol] 106 mg/dL 74-106 [facility] Comment on above: Fasting Glucose resu lt from 100 to 125 mg/dL suggests IMPAIRED HOMEOSTASIS per A.D.A. criteria. Potassium [Moles/Vol] 3.8 mmol/L 3.5-5.1 [facility] Protein [Mass/Vol] 7.9 g/dL 6.4-8.2 [facility] Sodium [Moles/Vol] 142 mmol/L 136-145 [facility] WBC (Bld) [#/Vol] 4.0 10*3/uL 4.4-11.0 [facility] Blood erythrocytes count (nu mber/volume)Ordered By: Dr. Melchor on 03-09-2023 RBC (Bld) [#/Vol] 4.81 10*6/uL 4.2-5.4 [facility] Blood hemoglobin measurement (mass/volume)Ordered By: Dr. Melchor on 03-09-2023 Hemoglobin (Bld) [Mass/Vol] 13.9 g/dL 12.0-15.0 [facility] Blood platelet mean volumeOr dered By: Dr. Melchor on 03-09-2023 Platelet mean volume (Bld) [Entitic vol] 10.2 fL 6.2-12.0 [facility] Determination of erythrocyte mean corpuscular volume (MCV)Ordered By: Dr. Melchor on 03-09-2023 MCV (RBC) [Entitic vol] 90.4 fL 81-99 [facility] Hematocrit Auto (Bld) [Volum e fraction]Ordered By: Dr. Melchor on 03-09-2023 Hematocrit (Bld) [Volume fraction] 43.5 % 37-47 [facility] Laboratory - Chemistry and C hemistry - challengeOrdered By: Dr. Melchor on 03-09-2023 ALP [Catalytic activity/Vol] 73 U/L 45-117 [facility] ALT [Catalytic activity/Vol] 28 U/L 13-56 [facility] CO2 [Moles/Vol] 28.0 mmol/L 21.0-32.0 [facility] Free T4 [Mass/Vol] 1.04 ng/dL 0.76-1.46 [facility] Globulin (S) [Mass/Vol] 4.2 g/dL 2.2-4.2 [facility] Urea nitrogen/Creatinine [Mass ratio] 19.0 mg/mg 10-20 [facility] - Hematology and Cell countsOrdered By: Dr. Melchor on 03-09-2023 Erythrocyte distribution width (RBC) [Entitic vol] 39.0 fL 35.1-43.9 [facility] Erythrocyte distribution width (RBC) [Ratio] 11.9 % 11.6-14.6 [facility] MCH (RBC) [Entitic mass] 28.9 pg 27.0-32.0 [facility] MCHC Auto (RBC) [Mass/Vol]Or dered By: Dr. Melchor on 03-09-2023 MCHC (RBC) [Mass/Vol] 32.0 g/dL 32-36 [facility] No Panel InformationOrdered By: Dr. Melchor on 03-09-2023 Estimated GFR (MDRD) Amer 113 mL/min >60 [facility] Comment on above: GFR Calc Estimated GFR (MDRD) Non-Af Amer 94 mL/min >60 [facility] Comment on above: Non- GFR Calc Free Triiodothyronine (T3) pg/dL 2.7 pg/mL 2.18-3.98 [facility] Thyroid Stimulating Hormone (TSH) 1.59 uIU/mL 0.358-3.74 [facility] Platelets bldOrdered By: Dr. Melchor on 03-09-2023 Platelets (Bld) [#/Vol] 196 10*3/uL 150-450 [facility] Serum or plasma albumin baldo urement (mass/volume)Ordered By: Dr. Melchor on 03-09-2023 Albumin [Mass/Vol] 3.7 g/dL 3.2-5.0 [facility] Serum or plasma albumin/glob ulin mass ratioOrdered By: Dr. Melchor on 03-09-2023 Albumin/Globulin [Mass ratio] 0.9 {ratio} 0.9-2.4 [facility] Serum or plasma calcium baldo urement (mass/volume)Ordered By: Dr. Melchor on 03-09-2023 Calcium [Mass/Vol] 9.2 mg/dL 8.5-10.1 [facility] Serum or plasma creatinine m easurement (mass/volume)Ordered By: Dr. Melchor on 03-09-2023 Creatinine [Mass/Vol] 0.69 mg/dL 0.55-1.02 [facility] Comment on above: The validity of the calculated GFR & GFRAA in patients over 70 years has not been determined. Clinical correlation is essential. Serum or plasma urea nitroge n measurement (mass/volume)Ordered By: Dr. Melchor on 03-09-2023 Urea nitrogen [Mass/Vol] 13 mg/dL 7-18 [facility] Thin prep Papanicolaou smear with manual screeningOrdered By: Dr. Melchor on 03-09-2023 Thin prep Papanicolaou smear with manual screening 17 U/L 15-37 [facility] Thin prep Papanicolaou smear with manual screening 7 5-15 [facility] Basophil percentageon 2021 Bilirubin [Mass/Vol] 0.20 mg/dL 0.20-1.00 [facility] Work Phone: Comment on above: For patients on eltr ombopag therapy, use of Dimension [place] TBIL is not recommended. Chloride [Moles/Vol] 109 mmol/L 98-107 [facility] Work Phone: Glucose [Mass/Vol] 86 mg/dL 74-106 [facility] Work Phone: [phone] Potassium [Moles/Vol] 3.8 mmol/L 3.5-5.1 [facility] Work Phone: [phone] Protein [Mass/Vol] 8.2 g/dL 6.4-8.2 [facility] Work Phone: [phone] Sodium [Moles/Vol] 142 mmol/L 136-145 [facility] Work Phone: [phone] Laboratory - Chemistry and C hemistry - challengeon 06-05-2022 ALP [Catalytic activity/Vol] 89 U/L 45-117 [facility] Work Phone: ALT [Catalytic activity/Vol] 28 U/L 13-56 [facility] Work Phone: CO2 [Moles/Vol] 25.0 mmol/L 21.0-32.0 [facility] Work Phone: Globulin (S) [Mass/Vol] 4.3 g/dL 2.2-4.2 [facility] Work Phone: Urea nitrogen/Creatinine [Mass ratio] 29.1 mg/mg 10-20 [facility] Work Phone: No Panel Informationon 06-05 Estimated GFR (MDRD) Amer 101 mL/min >60 [facility] Work Phone: Comment on above: GFR Calc Estimated GFR (MDRD) Non-Af Amer 84 mL/min >60 [facility] Work Phone: Comment on above: Non- GFR Calc Urine Microalbumin/Creatinine Ratio 13.5 mg/g CRE <30 [facility] Work Phone: Serum or plasma albumin baldo urement (mass/volume)on 06-05-2022 Albumin [Mass/Vol] 3.9 g/dL 3.2-5.0 [facility] Work Phone: Serum or plasma albumin/glob ulin mass ratioon 06-05-2022 Albumin/Globulin [Mass ratio] 0.9 {ratio} 0.9-2.4 [facility] Work Phone: Serum or plasma calcium baldo urement (mass/volume)on 06-05-2022 Calcium [Mass/Vol] 9.4 mg/dL 8.5-10.1 [facility] Work Phone: Serum or plasma creatinine m easurement (mass/volume)on 06-05-2022 Creatinine [Mass/Vol] 0.76 mg/dL 0.55-1.02 [facility] Work Phone: Comment on above: The validity of the calculated GFR & GFRAA in patients over 70 years has not been determined. Clinical correlation is essential. Serum or plasma urea nitroge n measurement (mass/volume)on 06-05-2022 Urea nitrogen [Mass/Vol] 22 mg/dL 7-18 [facility] Work Phone: Thin prep Papanicolaou smear with manual screeningon 06-05-2022 Thin prep Papanicolaou smear with manual screening 19 U/L 15-37 [facility] Work Phone: Thin prep Papanicolaou smear with manual screening 8 5-15 [facility] Work Phone: Thin prep Papanicolaou smear with manual screening 9.9 mg/L NO RANGE EST. [facility] Work Phone: Urine creatinine measurement (mass/volume)on 06-05-2022 Creatinine (U) [Mass/Vol] 73.30 mg/dL NO RANGE EST. [facility] Work Phone: Encounters Encounter Date Encounter Type Care Provider Facility Start: 10-22-2024 End: 10-22-2024 ambulatory [facility] Facility:[facility] Start: 05-05-2024 End: 05-05-2024 ambulatory [facility] Facility:[facility] Start: 11-15-2023 End: 11-15-2023 ambulatory [facility] Work Phone: Start: 11-15-2023 End: 11-15-2023 Patient encounter procedure [facility] Start: 11-15-2023 End: 11-15-2023 ambulatory [facility] Facility:[facility] Start: 08-17-2023 End: 08-17-2023 ambulatory [facility] Work Phone: Start: 08-17-2023 End: 08-17-2023 Patient encounter procedure [facility] Work Phone: Start: 03-26-2023 End: 03-26-2023 ambulatory [facility] Work Phone: Start: 03-26-2023 End: 03-26-2023 [facility] Work Phone: Start: 03-09-2023 End: 03-09-2023 ambulatory [facility] Work Phone: Start: 03-09-2023 End: 03-09-2023 [facility] [place] Start: 06-05-2022 End: 06-05-2022 ambulatory [facility] Work Phone: Start: 06-05-2022 End: 06-05-2022 [facility] [place] Procedures Date Procedure Procedure Detail Performing Clinician Start: 08-17-2023 Screening mammography Payers Date Payer Category Payer Private Health Insurance [id number] 2023 Self-pay [id number] 2012 Unknown ANTHEM [id number] Unknown [id number] Unknown [id number] Social History Date Type Detail Facility Start: 06-16-2018 End: 06-16-2018 Tobacco smoking status NHIS Unknown if ever smoked [facility] Start: 1965 Sex Assigned At Female [facility] Start: 02-16-2018 Non-smoker [facility] Medical Equipment Procedure Code Equipment Code Equipment Origin al Text Equipment Identifier Dates MATEO 3GRM HEMO STAT ABS FDA Start: 02-14-2018 MATEO 3GRM HEMO STAT ABS FDA Start: 02-14-2018 MATEO 3GRM HEMO STAT ABS FDA Start: 02-14-2018 MATEO 3GRM HEMO STAT ABS FDA Start: 02-14-2018 MATEO 3GRM HEMO STAT ABS FDA Start: 02-14-2018 Evaluation note Note Date & Type Note Facility Evaluation note No assessment information availa ted [facility] Work Phone: Advance Directives No Advanced Directives Records Found Advance Directive Response Recorded Date/ Time Living Will No June 16, 2018 2:17am Power of Machine Brush Maker No May 2:17am Advance Directive Response Recorded Date/ Time Living Will No June 16, 2018 1:17am Power of Machine Brush Maker No May 1:17am Chief Complaint and Reason for Visit Chief Complaint URINE SAMPLE Chief Complaint SCREENING Summary Purpose Family History No Family History Records Found Additional Source Comments Goals (unrecognized section and content) Goals may be documented in a n alternate sectionGoals may be documented in an alternate sectionGoals may be documented in an alternate sectionGoals may be documented in an alternate sectionGoals may be documented in an alternate section Care Teams (unrecognized sec tion and content) Team Status: Active Member Role Status Dates Dr. Sterling Melchor MD Family Provider Active Dr. Sterling Melchor MD Primary Care Provider Active Team Status: Inactive Member Role Status Dates Dr. Sterling Melchor MD Primary Care Provide r, Attending Provider, Referring Provider Active Team Status: Inactive Member Role Status Dates Dr. Sterling Melchor MD Primary Care Provider, Attending P valerie Active Team Status: Inactive Member Role Status Dates Dr. Sterling Melchor MD Primary Care Provider Active MARLEEN Lee Attending Provider Active INFORMATION SOURCE (unrecogn ized section and content) DATE CREATED AUTHOR 11/06/2024 [facility] FOR RECORDS PERTAINING TO PATIENTS WHO ARE OR HAVE BEEN ENROLLED IN A CHEMICAL DEPENDENCY/SUBSTANCEABUSE PROGRAM, SOME INFORMATION MAY BE OMITTED. This clinical summary was aggregated from multiple sources. Caution should be exercised in using it in the provision of clinical care. This summary normalizes information from multiple sources, and as a consequence, information in this document may materially change the coding, format and clinical context of patient data. In addition, data may be omitted in some cases. CLINICAL DECISIONS SHOULD BE BASED ON THE PRIMARY CLINICAL RECORDS. [employer] provides no warranty or guarantee of the accuracy or completeness of information in this document.
[2025-05-11 10:49] LABS: Creatinine, Urine (random) 135.00 mg/dL (28.00-217.00); Microalbumin,Random Urine < 12.0 mg/L (<20 mg/L)
[2025-05-11 10:54] LABS: AST(SGOT) 23 U/L (<=31); Alanine Aminotransfer ALT/SGPT 22 U/L (<=34); Albumin, Serum 4.2 g/dL (3.4-4.8); Alkaline Phosphatase 62 U/L (35-104); Anion Gap 11 (5-15); BUN 17 mg/dL (4-19); BUN/Creat Ratio 27.2 RATIO (10-20); Calcium,Total 9.2 mg/dL (7.6-11.0); Carbon Dioxide 21.3 mmol/L (21.0-32.0); Chloride 108 mmol/L (98-108); Globulin 3.0 g/dL (2.2-4.2); Glucose 99 mg/dL (70-99); Potassium 4.1 mmol/L (3.3-5.1)
[2025-05-11 12:01] LABS: Cholesterol 191 mg/dL (<=200); Low Density Lipoprotein Calc. 96 mg/dL; Triglycerides 257 mg/dL; Very Low Density Lipoprotein 51 mg/dL (5-40); cholesterol:hdl ratio screen 4.40
== END | disposition home or self-care (01) ==
PROVIDERS: PCP Family Medicine; Referring Provider Family Medicine; Visit Provider Family Medicine
DX: I10 Essential (primary) hypertension (principal); E03.9 Hypothyroidism, unspecified
CPT/HCPCS: 36415; 80053; 80061; 82043; 82570; 84443

== ENCOUNTER → 2025-09-22 | Outpatient (CLI) | payer OTHER, SELFPAY ==
[2025-09-22 11:07] LABS: AST(SGOT) 27 U/L (<=31); Alanine Aminotransfer ALT/SGPT 34 U/L (<=34); Albumin, Serum 4.2 g/dL (3.4-4.8); Alkaline Phosphatase 61 U/L (35-104); Anion Gap 10 (7-18); BUN 16 mg/dL (4-19); BUN/Creat Ratio 23.0 RATIO (10-20); Calcium,Total 9.3 mg/dL (7.6-11.0); Carbon Dioxide 23.5 mmol/L (20.0-29.0); Chloride 107 mmol/L (96-106); Globulin 3.1 g/dL (2.2-4.2); Glucose 101 mg/dL (70-99); Potassium 4.1 mmol/L (3.5-5.1)
[2025-09-22 11:38] LABS: Free T3 2.5 pg/mL (2.18-3.98)
[2025-09-25 09:38] LABS: Cholesterol 221 mg/dL (<=200); Low Density Lipoprotein Calc. 140 mg/dL; Triglycerides 222 mg/dL; Very Low Density Lipoprotein 44 mg/dL (5-40); cholesterol:hdl ratio screen 5.42
== END | disposition home or self-care (01) ==
LOC: MTLAB 08:59
PROVIDERS: PCP Family Medicine; Referring Provider Family Medicine; Visit Provider Family Medicine
DX: I10 Essential (primary) hypertension (principal); E03.9 Hypothyroidism, unspecified
CPT/HCPCS: 36415; 80053; 80061; 84439; 84443; 84481